=== PATIENT | female | born 1930 | race Caucasian/White ===

== ENCOUNTER → 2016-07-26 | Outpatient (CLI) | payer MEDICARE, BC ==
[2016-07-26 10:28] LABS: ABSOLUTE EOSINOPHILS # (AUTO) 0.3 10^3/uL (0.0-0.6); ABSOLUTE LYMPHOCYTES (AUTO) 1.5 10^3/uL (0.5-4.7); ABSOLUTE MONOCYTES (AUTO) 0.7 10^3/uL (0.1-1.4); ABSOLUTE NEUT (AUTO) 4.3 10^3/uL (1.7-8.2); BASOPHILS % (AUTO) 0.5 % (0-2); EOSINOPHILS % (AUTO) 3.8 % (0-6); HEMATOCRIT 41.5 % (36.0-47.0); HEMOGLOBIN 14.3 g/dL (12.0-15.5); HGB HCT DIFFERENCE 1.4; LYMPHOCYTES % (AUTO) 21.8 % (13-45); MEAN CORPUSCULAR HEMOGLOBIN 30.1 pg (27.0-33.4); MEAN CORPUSCULAR HGB CONC 34.4 g/dL (32.0-36.0); MEAN CORPUSCULAR VOLUME 88 fl (80-97); MONOCYTES % (AUTO) 9.9 % (3-13); RED BLOOD COUNT 4.74 10^6/uL (3.72-5.28); RED CELL DISTRIBUTION WIDTH 12.3 % (11.5-14.0); WHITE BLOOD COUNT 6.7 10^3/uL (4.0-10.5)
[2016-07-26 10:57] LABS: ALANINE AMINOTRANSFERASE 31 U/L (9-52); ALBUMIN 3.5 g/dL (3.5-5.0); ALKALINE PHOSPHATASE 63 U/L (38-126); ANION GAP 11 (5-19); ASPARTATE AMINO TRANSFERASE 26 U/L (14-36); BILIRUBIN,TOTAL 0.6 mg/dL (0.2-1.3); BLOOD UREA NITROGEN 42 mg/dL (7-20); CALCIUM 9.9 mg/dL (8.4-10.2); CARBON DIOXIDE 26 mmol/L (22-30); CHLORIDE 105 mmol/L (98-107); CHOLESTEROL 143.82 mg/dL (0-200); CREATININE RESULT 1.38 mg/dL (0.52-1.25); Direct HDL 44 mg/dL (>40); GLUCOSE 157 mg/dL (75-110); POTASSIUM 4.7 mmol/L (3.6-5.0); SODIUM 141.5 mmol/L (137-145); TOTAL PROTEIN 6.4 g/dL (6.3-8.2); TRIGLYCERIDES 225 mg/dL (<150)
[2016-07-26 11:08] LABS: DIRECT LDL 71 mg/dL (<100)
== END ==
LOC: OD 09:11
DX: R06.02 Shortness of breath (principal); Z79.899 Other long term (current) drug therapy
CPT/HCPCS: 36415; 71020; 80053; 80061; 83036; 84443; 85025

== ENCOUNTER → 2016-07-28 | Outpatient (CLI) | payer MEDICARE, BC | LOC: WI 13:18 | DX: Z12.31 Encounter for screening mammogram for malignant neoplasm of breast (principal); N63 Unspecified lump in breast; Z78.0 Asymptomatic menopausal state | CPT/HCPCS: 77063; 77080; G0202; 77067 ==

== ENCOUNTER → 2016-08-21 | Outpatient (CLI) | payer MEDICARE, BC | LOC: WI 10:36 | DX: N63 Unspecified lump in breast (principal) | CPT/HCPCS: 76642; G0204 ==

== ENCOUNTER → 2016-09-04 | Day surgery (SDC) | payer MEDICARE, BC ==
[~2016-09-04] MED LIST: LIDOCAINE 2% INJ (20 MG/ML) 20 ML MDV ONE
== END ==
LOC: WI 13:00
PROC: 0HBU3ZX Excision of Left Breast, Percutaneous Approach, Diagnostic (ICD-10-PCS; principal; 2016-09-04)
DX: C50.912 Malignant neoplasm of unspecified site of left female breast (principal)
CPT/HCPCS: 88342 ×2; 88341 ×2; 88305 ×2; 19083; J3490

== ENCOUNTER 2016-11-08 07:12 | Day surgery (SDC) | payer MEDICARE, BC ==
[2016-11-02 08:01] LABS: HEMATOCRIT 40.2 % (36.0-47.0); HEMOGLOBIN 12.9 g/dL (12.0-15.5); HGB HCT DIFFERENCE -1.5; MEAN CORPUSCULAR HGB CONC 32.1 g/dL (32.0-36.0); MEAN CORPUSCULAR VOLUME 91 fl (80-97); RED BLOOD COUNT 4.44 10^6/uL (3.72-5.28); RED CELL DISTRIBUTION WIDTH 13.4 % (11.5-14.0); WHITE BLOOD COUNT 5.8 10^3/uL (4.0-10.5)
[2016-11-04 18:50] LABS: ANION GAP 13 (5-19); BLOOD UREA NITROGEN 44 mg/dL (7-20); CALCIUM 10.2 mg/dL (8.4-10.2); CARBON DIOXIDE 29 mmol/L (22-30); CHLORIDE 100 mmol/L (98-107); CREATININE RESULT 1.47 mg/dL (0.52-1.25); GLUCOSE 180 mg/dL (75-110); POTASSIUM 4.2 mmol/L (3.6-5.0); SODIUM 142.4 mmol/L (137-145)
[~2016-11-08 07:12] MED LIST changes: +CLINDAMYCIN 600 MG/D5W RTU 600 MG/50 ML RTUPB IV PRN; +LACTATED RINGERS 1000 ML IV PRN; +LIDOCAINE 0.5% INJ-PF (5 MG/ML) 50 ML SDV SUBCUT PRN; -LIDOCAINE 2% INJ (20 MG/ML) 20 ML MDV ONE; +LIDOCAINE 4% TRANSPARENT DRESSING 5 GM KIT TP PRN
[2016-11-08] MEDS ORDERED: LIDOCAINE 1%/EPINEPHRINE INJ 20 ML VIAL ONE ×2 (07:25→12:49)
[2016-11-08] MEDS ORDERED: MICROFIBRILLAR COLLAGEN 1 GM PACK ONE (07:25)
[2016-11-08] MEDS ORDERED: GLYCOPYRROLATE INJ 0.4 MG/2 ML VIAL ONE (07:41)
[2016-11-08] MEDS ORDERED: ONDANSETRON HCL INJ/PF 4 MG/2 ML SDV ONE (07:41)
[2016-11-08] MEDS ORDERED: SUCCINYLCHOLINE CHLORIDE INJ 200 MG/10 ML VIAL ONE (07:41)
[2016-11-08] MEDS ORDERED: DEXAMETHASONE SOD PHOSPHATE INJ 4 MG/1 ML VIAL ONE (07:41)
[2016-11-08 08:11] LABS: PARTIAL THROMBOPLASTIN TIME 25.9 SEC (23.5-35.8); PROTHROMBIN TIME 13.4 SEC (11.4-15.4)
--- NOTE | 2016-11-08 09:33 | RADIOLOGY REPORT (SQ) ---
EXAM DESCRIPTION: NM LYMPHATICS/LYMPH GLANDS COMPLETED DATE/TIME: 11/08/2016 9:15 am REASON FOR STUDY: Left Breast CA C50.912 MALIGNANT NEOPLASM OF UNSPECIFIED SITE OF LEFT FEMALE Z79. 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 RADIONUCLIDE AND DOSE: 893 microcuries TC-99mtilmanocept - Lymphoseek. The route of agent administration: Subcutaneous in the skin. TECHNIQUE: The skin of the left breast was prepped in sterile fashion. The radiopharmaceutical was administered in equally divided doses in the periareolar breast. LIMITATIONS: None. FINDINGS: Images demonstrate activity at the injection site. IMPRESSION: ADMINISTRATION OF RADIOPHARMACEUTICAL FOR SENTINEL LYMPH NODE EVALUATION. TECHNICAL DOCUMENTATION: JOB ID: [id number] [email or web address]- All Rights Reserved
[2016-11-08] MEDS ORDERED: EPHEDRINE SULFATE INJ 50 MG/1 ML AMPULE ONE (12:29)
[2016-11-08] MEDS ORDERED: MIDAZOLAM 2 MG/2 ML INJ ONE (12:29)
[2016-11-08] MEDS ORDERED: HYDROMORPHONE HCL INJ/PF 2 MG/ML AMPULE ONE (12:29)
[2016-11-08] MEDS ORDERED: FENTANYL CITRATE INJ/PF 250 MCG/5 ML AMPULE ONE (12:29)
[2016-11-08] MEDS ORDERED: PROPOFOL INJ 200 MG/20 ML VIAL IV ONE (12:30)
[2016-11-08] MEDS ORDERED: ACETAMINOPHEN 100 ML IV ONE (12:30)
[2016-11-08] MEDS ORDERED: LIDOCAINE 2%/EPINEPHRINE INJ 20 ML VIAL ONE (12:50)
[2016-11-08] MEDS ORDERED: FENTANYL CITRATE INJ/PF 100 MCG/2 ML AMPUL IV PRN ×3 (13:25)
[2016-11-08] MEDS ORDERED: PROMETHAZINE HCL INJ 25 MG/1 ML VIAL IV PRN ×2 (13:25)
[2016-11-08] MEDS ORDERED: MEPERIDINE HCL/PF INJ 25 MG/1 ML DISP.SYRIN IV PRN (13:25)
[2016-11-08] MEDS ORDERED: DIPHENHYDRAMINE HCL 50 MG/ML VIAL IV PRN (13:25)
[2016-11-08] MEDS ORDERED: OXYCODONE-ACETAMINOPHEN 5-325 MG TABLET PO PRN ×2 (13:25)
[2016-11-08] MEDS ORDERED: MORPHINE SULFATE 10 MG/ML INJ IV PRN (13:25)
--- NOTE | 2016-11-08 14:42 | Operative Report ---
Operative Report DATE OF SURGERY: 11/08/16 PREOPERATIVE DIAGNOSIS: Breast carcinoma left OPERATION: 1. Lymph node biopsy sentinel times two. 2. Left breast lumpectomy , excision of anterior cavity wall pain placement. 3. intra Operative ultrasonography SURGEON: HUAN PUGH CROSSBOW MAKER: PATRICK KELLEY ANESTHESIA: GA TISSUE REMOVED OR ALTERED: Lymph node 2; left breast lumpectomy and anterior cavity wall COMPLICATIONS: None ESTIMATED BLOOD LOSS: 10 cc INTRAOPERATIVE FINDINGS: Below PROCEDURE: Patient was seen in the ambulatory surgery area, she underwent lymphoscintigraphy left breast. Unfortunately she could not lay down for all the imaging but she did get injected with technetium 99 sulfur colloid. Bedside neoprobe showed uptake in the left axilla Patient was taken to the operating room where general anesthesia was induced. The left arm was abducted left breast and chest wall prepped and draped in a sterile fashion. Surgical plan and surgical timeout were conducted. There was no methylene blue left in the hospital so blue dye mapping could not be used. Neoprobe used to perform localization of sentinel lymph nodes. Skin was anesthetized 1% lidocaine with epinephrine. A 3 cm incision was made in the left axilla. 2 sentinel lymph nodes were harvested both hot the first in vivo count 4871 with an ex vivo count was 3567. The second sentinel lymph node had an in vivo count of 11,051 and an ex vivo count of 9914. Both lymph nodes were obtained from the lower axilla, zone 1. Hemostasis was excellent the wound was packed with a gauze dressing We now approached the left breast tumor which is approximately 2 cm mass in the 6 o'clock position of the left breast. Ultrasonography confirmed the presence of the mass just above the inframammary fold. The skin was anesthetized with 1 % plain. Approximately 7-1/2 cm incision was made over the target tissue. A generous lumpectomy specimen was obtained without the removal of skin. The specimen was taken down to the chest wall. Sutures of 0 silk were placed short gut in the 12 o'clock position and long in the 3 o'clock position. The specimen was sent to pathology and evaluated by Dr. Neal and found to contain the tumor however she was concerned there may be positive margin anteriorly. For this reason we went back to the left breast and excised are recently closed the incision which consisted of the superior and inferior skin flaps. This portion of tissue was approximately 1/2 cm wide by 9 cm long. It was similarly with suture at the 12 o'clock position, short, and the lateral 3 o'clock position long. It was sent for permanent analysis by pathology. A large drain Sae was placed in the inferior mammary fold was secured to the skin with 2-0 Prolene suture. Wounds closed in the axilla and left breast with 3-0 Vicryl benzoin and Steri-Strips. Compression dressing applied the left breast. Postop procedure well, extubated, and taken to recovery in stable condition The physician assistant to the president, Ms. Kelley, provided assistance during this case by: port insertion, retracting tissue, instillation of local anesthesia and closure of skin incisions.
--- NOTE | 2016-11-08 14:50 | PDOC DISCHARGE SUMMARY ---
Discharge Summary (SDC) - Discharge Final Diagnosis: Left breast lumpectomy with sentinel node biopsy Date of Surgery: 11/08/16 Discharge Date: 11/08/16 Condition: Stable Treatment or Instructions: [facility] [address], [place] [address] Care Instructions Following Your Lumpectomy Activities: Resume normal activities when you feel comfortable. It is best to remain as active as possible to speed your recovery. It is common to experience some fatigue after surgery and you may find that short naps are helpful. Avoid strenuous activity such as weight lifting, tennis, etc at your surgical site for two weeks. Perform gentle arm exercises daily and do not favor your operative arm to due increased risk of mobility issues postoperatively. No driving for 7 days after surgery. Do not drive if you are taking pain medication other than Tylenol or Ibuprofen. No swimming, tub baths or soaking in a hot tub for 4 weeks. There are no dietary restrictions. Do not smoke as this impairs wound healing. Surgical Site care: You may shower with soap and water using your hands. Do not scrub the incision. Pat the area dry with a towel. You do not need to recover the wound although some patients find that they feel more comfortable using a light dressing for a few days to absorb any minimal drainage which may occur. Many patients also find that keeping a dressing around the drain exit site is helpful to absorb any drainage which may leak around the tubing. If you use a dressing in this manner change it at least every day. Do not use heating pad or apply an ice pack to the operative site. You may apply deodorant if you are careful to avoid getting it on the wound itself. Empty the bulbs attached to the drain every 12 hours and measure the fluid output separately from each drain. Please also strip each drain each time you empty it to prevent clogging. Keep a record of the output and bring this record with you each time you come to the office for postoperative care. A drain is ready to be removed when its output is 30 mL per 24 hours per drain for 2 consecutive days. Please call the office to inform our staff that you need to come in for drain removal. Medications: Take Toradol every 4-6 hours as needed for pain. You may alternate pain medication with tylenol. Again, you cannot drive while taking narcotic pain medication. Resume all of your normal prescription medications after your surgery unless instructed otherwise. You may experience constipation after surgery while taking pain medications. If using a narcotic on a regular basis, take a stool softener such as Colace twice a day. It is helpful to stay hydrated by drinking lots of fluids. Walking is also helpful and is good exercise after surgery. If you need extra help, use Milk of Magnesia according to the directions on the package. Follow-up: Call our office at to make a follow-up appointment in 10-14 days. Your doctor will call to discuss the pathology report with you as soon as it is available. Concerns: If you had a sentinel lymph node biopsy with your mastectomy, your urine may have a greenish discoloration. This is normal and will resolve as the blue dye slowly leaves your system. If you notice significant leakage around the drains , this is not normal. The drains may be clogged. Please call our office to come in immediately for the drains to be checked. Some bruising may occur and will go away over time. If you have a fever of 101.5 or greater, chills, redness at the incision site, excessive drainage from your wound or severe pain not relieved by pain medication, call your doctor. A physician is available 24 hours a day 7 days a week in addition to regular office hours. If problems arise after normal office hours please call the hospital at . Please call if you have any questions or concerns. Prescriptions: Ketorolac Tromethamine [Toradol 10 mg Tablet] 10 mg PO Q6HP PRN #20 tablet PRN Reason: Discharge Diet: As Tolerated Discharge Activity: Activity As Tolerated - avoid overuse of left arm. Report the Following to Your Physician Immediately: Increase in Pain, Fever over 101 Degrees, Redness, Swelling, Warmth, Drainage-Foul Smelling
[2016-11-08 17:04] VITALS: BP 138/50
== END 2016-11-08 17:05 | disposition home or self-care (01) ==
LOC: OROUT 07:12
PROVIDERS: ATTEND Surgery
PROC: 07B60ZX Excision of Left Axillary Lymphatic, Open Approach, Diagnostic (ICD-10-PCS; 2016-11-08)
PROC: 0HBU0ZZ Excision of Left Breast, Open Approach (ICD-10-PCS; principal; 2016-11-08 11:00)
DX: C50.912 Malignant neoplasm of unspecified site of left female breast (principal); I25.10 Atherosclerotic heart disease of native coronary artery without angina pectoris; I73.9 Peripheral vascular disease, unspecified; I10 Essential (primary) hypertension; E11.9 Type 2 diabetes mellitus without complications; M19.90 Unspecified osteoarthritis, unspecified site; E66.9 Obesity, unspecified; Z87.891 Personal history of nicotine dependence; Z79.899 Other long term (current) drug therapy; Z79.82 Long term (current) use of aspirin; Z79.84 Long term (current) use of oral hypoglycemic drugs; Z68.37 Body mass index [BMI] 37.0-37.9, adult
CPT/HCPCS: 36415 ×2; 82962; 84132; 85027; 85610; 85730; 80048; 88342 ×2; 88305 ×2; 88307 ×2; 88329; 71020; 78195; 19301; 38500; A9520; J2250; J1100; J3010; J3490 ×3; J0330; J2405; J2704; J0131; 1610; J1170

== ENCOUNTER → 2016-12-01 | Outpatient (CLI) | payer MEDICARE, BC ==
[2016-12-01 10:23] LABS: HEMATOCRIT 42.5 % (36.0-47.0); HEMOGLOBIN 14.1 g/dL (12.0-15.5); HGB HCT DIFFERENCE -0.2; MEAN CORPUSCULAR HEMOGLOBIN 29.2 pg (27.0-33.4); MEAN CORPUSCULAR HGB CONC 33.2 g/dL (32.0-36.0); MEAN CORPUSCULAR VOLUME 88 fl (80-97); RED BLOOD COUNT 4.83 10^6/uL (3.72-5.28); WHITE BLOOD COUNT 5.6 10^3/uL (4.0-10.5)
[2016-12-01 10:57] LABS: ALANINE AMINOTRANSFERASE 29 U/L (9-52); ALBUMIN 3.9 g/dL (3.5-5.0); ALKALINE PHOSPHATASE 58 U/L (38-126); ANION GAP 11 (5-19); ASPARTATE AMINO TRANSFERASE 28 U/L (14-36); BILIRUBIN,DIRECT 0.4 mg/dL (0.0-0.4); BILIRUBIN,TOTAL 0.6 mg/dL (0.2-1.3); BLOOD UREA NITROGEN 41 mg/dL (7-20); CALCIUM 10.3 mg/dL (8.4-10.2); CARBON DIOXIDE 26 mmol/L (22-30); CHLORIDE 103 mmol/L (98-107); CREATININE RESULT 1.46 mg/dL (0.52-1.25); GLUCOSE 109 mg/dL (75-110); MAGNESIUM 1.7 mg/dL (1.6-2.3); POTASSIUM 4.7 mmol/L (3.6-5.0); SODIUM 140.2 mmol/L (137-145); TOTAL PROTEIN 6.5 g/dL (6.3-8.2)
[2016-12-01 14:30] LABS: APPEARANCE,URINE SLIGHTLY-CLOUDY; BILIRUBIN,URINE NEGATIVE (NEGATIVE); GLUCOSE, URINE NEGATIVE (NEGATIVE); KETONES,URINE NEGATIVE (NEGATIVE); LEUKOCYTE ESTERASE,URINE LARGE (NEGATIVE); NITRITE,URINE NEGATIVE (NEGATIVE); PROTEIN,URINE NEGATIVE (NEGATIVE); URINE SPECIFIC GRAVITY 1.015; UROBILINOGEN,URINE NEGATIVE mg/dL (<2.0)
== END ==
LOC: OD 08:39
PROVIDERS: ATTEND Internal Medicine Nephrology
DX: E11.22 Type 2 diabetes mellitus with diabetic chronic kidney disease (principal); N18.3 Chronic kidney disease, stage 3 (moderate); E87.5 Hyperkalemia
CPT/HCPCS: 36415; 80053; 81001; 83735; 85027

== ENCOUNTER → 2016-12-28 | Outpatient (CLI) | payer MEDICARE, BC ==
[2016-12-28 10:27] LABS: ANION GAP 13 (5-19); BLOOD UREA NITROGEN 48 mg/dL (7-20); CALCIUM 10.3 mg/dL (8.4-10.2); CARBON DIOXIDE 25 mmol/L (22-30); CHLORIDE 104 mmol/L (98-107); CREATININE RESULT 1.43 mg/dL (0.52-1.25); GLUCOSE 138 mg/dL (75-110); POTASSIUM 4.5 mmol/L (3.6-5.0); SODIUM 142.3 mmol/L (137-145)
== END ==
LOC: OD 09:11
PROVIDERS: ATTEND Internal Medicine Nephrology
DX: I12.9 Hypertensive chronic kidney disease with stage 1 through stage 4 chronic kidney disease, or unspecified chronic kidney disease (principal); N18.3 Chronic kidney disease, stage 3 (moderate); E11.9 Type 2 diabetes mellitus without complications
CPT/HCPCS: 36415; 80048

== ENCOUNTER → 2017-08-21 | Outpatient (CLI) | payer MEDICARE, BC ==
--- NOTE | 2017-08-21 12:50 | WOMENS IMAGING REPORT ---
EXAM DESCRIPTION: 3D DX MAMMO BILAT COMPLETED DATE/TIME: 08/21/2017 11:23 am REASON FOR STUDY: BREAST CANCER; C50.412 C50.412 MALIG NEOPLASM OF UPPER-OUTER QUADRANT OF LEFT FEM AL COMPARISON: 2017 TECHNIQUE: Standard craniocaudal and mediolateral oblique views of each breast recorded using digita l acquisition and breast tomosynthesis. True lateral view left breast. LIMITATIONS: None. FINDINGS: RIGHT BREAST MASSES: No suspicious masses. CALCIFICATIONS: No new or suspicious calcifications. ARCHITECTURAL DISTORTION: None. DEVELOPING DENSITY: None. ASYMMETRY: None noted. OTHER: No other significant findings. LEFT BREAST MASSES: No suspicious masses. CALCIFICATIONS: No new or suspicious calcifications. ARCHITECTURAL DISTORTION: None. DEVELOPING DENSITY: None. ASYMMETRY: None noted. OTHER: No other significant finding. Read with the assistance of CAD: .[facility] - R2 Cenova Version 1.3 .[facility] Imaging - R2 Cenova Version 1.3 .[facility] - R2 Cenova Version 2.4 .[facility] [place] - R2 Cenova Version 2.4 .[facility] - R2 Sink Maker Version 9.2 IMPRESSION: Postsurgical changes left breast. No evidence of malignancy in the right breast. BREAST DENSITY: a. The breasts are almost entirely fatty. BIRAD: 2 Benign findings. RECOMMENDATION: RECOMMENDED FOLLOW UP: Annual mammographic follow-up. SPECIFIC INTERVENTION/IMAGING/CONSULTATION RECOMMENDED:No additional intervention/ imaging/consultati on needed at this time. COMMUNICATION:The imaging findings were not discussed with the patient. Her referring provider has be en notified of the findings. COMMENT: The patient has been notified of the results by letter per SA requirements. Additional no tification policies are in place for contacting patient with suspicious or incomplete findings. Quality ID #225: The [employer] recommends an annual screening mammogram for women aged 40 years or over. This facility utilizes a reminder system to ensure that all patients receive reminder letters, and/or direct phone calls for appointments. This includes reminders for routine scr eening mammograms, diagnostic mammograms, or other Breast Imaging Interventions when appropriate. Th is patient will be placed in the appropriate reminder system. The [employer] (ACR) has developed recommendations for screening MRI of the breast s in certain patient populations, to be used in conjunction with mammography. Breast MRI surveillanc e may be appropriate for women with more than 20% lifetime risk of developing breast cancer as deter mined by genetic testing, significant family history of the disease, or history of mantle radiation f or Hodgkins Disease. ACR Practice Guidelines 2008. DBT Technology DBT is a type of tomographic mammography. With conventional mammography, overlapping breast tissue ma y make lesions difficult to detect, even with good compression. DBT uses an x-ray tube that rotates a round the breast, taking images at different angles. These images are then combined to create thin sl ices of the breast that the radiologist can view as a 3D reconstruction. The [employer] unit can perform full-field digital mammograms (2D imaging); or DBT (3D imaging); or both, in a combination mode that quickly performs both the mammogram and the tomosynthesis scan while the breast is still compressed. PQRS 6045F: Fluoroscopic imaging is not utilized for breast tomosynthesis. TECHNICAL DOCUMENTATION: FINDING NUMBER: (1) ASSESSMENT: (1) JOB ID: [id number] [employer]- All Rights Reserved Reading location - IP/workstation name: [email or web address]
== END ==
LOC: WI 10:53
PROVIDERS: ATTEND Internal Medicine Hematology & Oncology
DX: C50.412 Malignant neoplasm of upper-outer quadrant of left female breast (principal)
CPT/HCPCS: 77066; G0279; 77062

== ENCOUNTER → 2017-10-22 | Outpatient (CLI) | payer MEDICARE, BC ==
[2017-10-22 13:31] LABS: HEMOGLOBIN 14.8 g/dL (12.0-15.5); MEAN CORPUSCULAR HEMOGLOBIN 29.2 pg (27.0-33.4); MEAN CORPUSCULAR HGB CONC 33.7 g/dL (32.0-36.0); MEAN CORPUSCULAR VOLUME 87 fl (80-97); PLATELET COUNT 197 10^3/uL (150-450); RED BLOOD COUNT 5.08 10^6/uL (3.72-5.28); RED CELL DISTRIBUTION WIDTH 12.6 % (11.5-14.0); WHITE BLOOD COUNT 7.5 10^3/uL (4.0-10.5)
[2017-10-22 13:52] LABS: ANION GAP 14 (5-19); BLOOD UREA NITROGEN 43 mg/dL (7-20); CALCIUM 11.4 mg/dL (8.4-10.2); CARBON DIOXIDE 31 mmol/L (22-30); CHLORIDE 99 mmol/L (98-107); GLUCOSE 154 mg/dL (75-110); POTASSIUM 4.7 mmol/L (3.6-5.0); SODIUM 143.8 mmol/L (137-145)
[2017-10-22 17:11] LABS: APPEARANCE,URINE SLIGHTLY-CLOUDY; BILIRUBIN,URINE NEGATIVE (NEGATIVE); COLOR,URINE YELLOW; GLUCOSE, URINE NEGATIVE (NEGATIVE); KETONES,URINE NEGATIVE (NEGATIVE); LEUKOCYTE ESTERASE,URINE LARGE (NEGATIVE); NITRITE,URINE NEGATIVE (NEGATIVE); PROTEIN,URINE NEGATIVE (NEGATIVE); URINE SPECIFIC GRAVITY 1.017; UROBILINOGEN,URINE NEGATIVE mg/dL (<2.0)
[2017-10-24 12:38] LABS: CREATININE URINE 162.1 mg/dL (Not Estab.); MICROALBUMIN URINE 83.3 ug/mL (Not Estab.)
== END ==
LOC: OD 12:38
PROVIDERS: ATTEND Internal Medicine Nephrology
DX: I12.9 Hypertensive chronic kidney disease with stage 1 through stage 4 chronic kidney disease, or unspecified chronic kidney disease (principal); N18.3 Chronic kidney disease, stage 3 (moderate); E11.9 Type 2 diabetes mellitus without complications; E87.5 Hyperkalemia
CPT/HCPCS: 36415; 80048; 81001; 82043; 82570; 85027

== ENCOUNTER → 2017-12-05 | Outpatient (CLI) | payer MEDICARE, BC ==
--- NOTE | 2017-12-06 11:49 | XCELERA REPORT ---
[address] [address] Lower Extremity Arterial Evaluation Name: AME HOPE I Age: 87 yrs Gender: Female : 1930 Patient Status: Outpatient Patient Location: Study Date: 12/05/2017 01:18 PM Procedure: A color flow and duplex scan of the lower extremity arteries was performed bilaterally with velocity and waveform analysis. Ankle brachial indicies performed. Reason For Study: BLE PAIN Ordering Physician: KB GAMBOA Performed By: Adolph Mena Measurements and Calculations Right Left WARD SECRETARY PSV 138.3 227.5 cm/sec Prox PFA PSV -85.6 -98.7 cm/sec Prox SFA PSV 86.4 117.3 cm/sec Mid SFA PSV -116.4 -117.3 cm/sec Dist SFA PSV -72.6 -129.6 cm/sec Prox Pop A PSV 82.5 85.0 cm/sec Dist GWYN PSV 57.0 104.1 cm/sec Dist COMPUTER HARDWARE DEVELOPER PSV 66.3 99.2 cm/sec Juan Pedis PSV 60.8 103.1 cm/sec Right Side Arterial Evaluation Normal velocity and triphasic waveforms noted in the Common Femoral artery. Biphasic otherwise to the infrageniculate vessels. 20-49 % stenosis at the Deep Femoral and Femoral arteries. Ankle Brachial index is 0.79. Left Side Arterial Evaluation Normal velocity and triphasic waveforms noted in the Common Femoral artery. Biphasic otherwise to the infrageniculate vessels. 20-49 % stenosis at the Deep Femoral and Femoral arteries. Ankle Brachial index is 0.99. Interpretation Summary Moderate hemodynamically significant lesions in the bilateral lower extremities, on duplex imaging, at rest. : KB GAMBOA > Kirk Scruggs
== END ==
LOC: SP 12:58
PROVIDERS: ATTEND Internal Medicine Cardiovascular Disease
DX: M79.605 Pain in left leg (principal)
CPT/HCPCS: 93922; 93925

== ENCOUNTER → 2018-02-14 | Outpatient (CLI) | payer MEDICARE, BC ==
[2018-02-14 14:26] LABS: ABSOLUTE BASOPHILS # (AUTO) 0.1 10^3/uL (0.0-0.2); ABSOLUTE LYMPHOCYTES (AUTO) 0.9 10^3/uL (0.5-4.7); ABSOLUTE MONOCYTES (AUTO) 0.6 10^3/uL (0.1-1.4); BASOPHILS % (AUTO) 0.8 % (0-2); EOSINOPHILS % (AUTO) 0.7 % (0-6); HEMATOCRIT 44.7 % (36.0-47.0); HEMOGLOBIN 15.2 g/dL (12.0-15.5); LYMPHOCYTES % (AUTO) 13.4 % (13-45); MEAN CORPUSCULAR HEMOGLOBIN 29.1 pg (27.0-33.4); MEAN CORPUSCULAR VOLUME 86 fl (80-97); MONOCYTES % (AUTO) 8.8 % (3-13); PLATELET COUNT 209 10^3/uL (150-450); RED BLOOD COUNT 5.22 10^6/uL (3.72-5.28); RED CELL DISTRIBUTION WIDTH 12.8 % (11.5-14.0); SEGMENTED NEUTROPHILS % (AUTO) 76.3 % (42-78); TOTAL CELLS COUNTED % (AUTO) 100 %; WHITE BLOOD COUNT 6.6 10^3/uL (4.0-10.5)
[2018-02-14 14:30] LABS: PROTHROMBIN TIME 13.7 SEC (11.4-15.4)
[2018-02-14 15:08] LABS: ANION GAP 14 (5-19); BLOOD UREA NITROGEN 35 mg/dL (7-20); CALCIUM 9.7 mg/dL (8.4-10.2); CARBON DIOXIDE 27 mmol/L (22-30); CHLORIDE 101 mmol/L (98-107); GLUCOSE 133 mg/dL (75-110); POTASSIUM 4.2 mmol/L (3.6-5.0); SODIUM 141.9 mmol/L (137-145)
== END ==
LOC: OD 13:31
PROVIDERS: ATTEND Internal Medicine Cardiovascular Disease
DX: I73.9 Peripheral vascular disease, unspecified (principal); I10 Essential (primary) hypertension
CPT/HCPCS: 36415; 80048; 83735; 85025; 85610

== ENCOUNTER 2018-02-24 15:32 | Observation (INO) | payer MEDICARE, BC ==
--- NOTE | 2018-02-24 16:06 | ER Document Report ---
ED Medical Screen (RME) - General Chief Complaint: Nausea Stated Complaint: NAUSEA, LEG PAIN Time Seen by Provider: 02/24/18 15:50 Mode of Arrival: Ambulatory Information source: Patient, Relative, [facility] Records Notes: 87-year-old female presents with 4 days of nausea without vomiting, blurred vision that started this morning and confusion that started yesterday. I have greeted and performed a rapid initial assessment of this patient. A comprehensive ED assessment and evaluation of the patient, analysis of test results and completion of medical decision making process we will be contacted by additional ED providers. PHYSICAL EXAMINATION: GENERAL: Well-appearing, well-nourished and in no acute distress. HEAD: Atraumatic, normocephalic. EYES: Pupils equal round extraocular movements intact, conjunctiva are normal. ENT: Nares patent NECK: Normal range of motion LUNGS: No respiratory distress Musculoskeletal: Normal range of motion NEUROLOGICAL: Normal speech, normal gait. Cranial nerves II through XII intact PSYCH: Normal mood, normal affect. SKIN: Warm, Dry, normal turgor, no rashes or lesions noted. TRAVEL OUTSIDE OF THE [place] IN LAST 30 DAYS: No - HPI Onset: Other Associated Symptoms: Nausea Exacerbated by: Denies Relieved by: Denies Similar symptoms previously: No Recently seen / treated by doctor: No - Related Data Smoking: Non-smoker Frequency of alcohol use: None Drug Abuse: None Allergies/Adverse Reactions: cephalexin monohydrate [From Keflex] Allergy (Verified 02/24/18 15:55) RASH, ITCHING Past Medical History - Social History Chew tobacco use (# tins/day): No Frequency of alcohol use: None Drug Abuse: None - Past Medical History Cardiac Medical History: Reports: Hx Hypercholesterolemia, Hx Hypertension, Hx Peripheral Vascular Disease Denies: Hx Coronary Artery Disease, Hx Heart Attack - PAD FOLLOWED IN [id number] Pulmonary Medical History: Denies: Hx Asthma, Hx Bronchitis, Hx COPD, Hx Pneumonia, Hx Tuberculosis Neurological Medical History: Denies: Hx Cerebrovascular Accident, Hx Seizures Endocrine Medical History: Reports: Hx Diabetes Mellitus Type 2 Renal/ Medical History: Denies: Hx Peritoneal Dialysis GI Medical History: Denies: Hx Hepatitis, Hx Hiatal Hernia, Hx Ulcer Musculoskeltal Medical History: Reports Hx Arthritis - legs Infectious Medical History: Denies: Hx Hepatitis Past Surgical History: Reports: Hx Breast Surgery - left lumpectomy, Hx Hysterectomy, Hx Vascular Surgery - Recently had a left femoral artery stent placed. Denies: Hx Open Heart Surgery, Hx Pacemaker - Immunizations Hx Diphtheria, Pertussis, Tetanus Vaccination: Yes Physical Exam - Vital signs Vitals: Temp Pulse Resp BP Pulse Ox 98.8 F 65 18 138/58 H 96 02/24/18 15:42 02/24/18 15:42 02/24/18 15:42 02/24/18 15:42 02/24/18 15:42 Course - Vital Signs Vital signs: Temp Pulse Resp BP Pulse Ox 98.8 F 65 18 138/58 H 96 02/24/18 15:42 02/24/18 15:42 02/24/18 15:42 02/24/18 15:42 02/24/18 15:42 Doctor's Discharge - Discharge Referrals: MARIANO MOYA DO [Primary Care Provider] - Follow up as needed
--- NOTE | 2018-02-24 17:00 | RADIOLOGY REPORT (SQ) ---
EXAM DESCRIPTION: CT HEAD WITHOUT COMPLETED DATE/TIME: 02/24/2018 4:51 pm REASON FOR STUDY: Confusion, blurred vision COMPARISON: None. TECHNIQUE: Axial images acquired through the brain without intravenous contrast. Images reviewed wi th bone, brain and subdural windows. Additional sagittal and coronal reconstructions were generated. Images stored on PACS. All CT scanners at this facility use dose modulation, iterative reconstruction, and/or weight based d osing when appropriate to reduce radiation dose to as low as reasonably achievable (ALARA). [facility]: Dose Right [facility]: CareDose [facility]: Dose Right [facility]: Teradose 4D [facility]: Smart Technologies RADIATION DOSE: CT Rad equipment meets quality standard of care and radiation dose reduction techniq ues were employed. CTDIvol: 53.2 mGy. DLP: 991 mGy-cm. mGy. LIMITATIONS: None. FINDINGS: VENTRICLES: Normal size and contour. CEREBRUM: No masses. No hemorrhage. No midline shift. No evidence for acute infarction. Normal gra y/white matter differentiation. No areas of low density in the white matter. CEREBELLUM: No masses. No hemorrhage. No alteration of density. No evidence for acute infarction. EXTRAAXIAL SPACES: No fluid collections. No masses. ORBITS AND GLOBE: No intra- or extraconal masses. Normal contour of globe without masses. CALVARIUM: No fracture. PARANASAL SINUSES: No fluid or mucosal thickening. SOFT TISSUES: No mass or hematoma. OTHER: No other significant finding. IMPRESSION: NORMAL BRAIN CT WITHOUT CONTRAST. EVIDENCE OF ACUTE STROKE: NO. COMMENT: Quality ID # [id number]: Final reports with documentation of one or more dose reduction techniques (e.g., Automated exposure control, adjustment of the mA and/or kV according to patient size, use of iterative reconstruction technique) TECHNICAL DOCUMENTATION: JOB ID: [id number] [employer]- All Rights Reserved Reading location - IP/workstation name: [email or web address]
--- NOTE | 2018-02-24 17:14 | RADIOLOGY REPORT (SQ) ---
EXAM DESCRIPTION: CHEST SINGLE VIEW COMPLETED DATE/TIME: 02/24/2018 5:05 pm REASON FOR STUDY: Confusion, blurred vision COMPARISON: None. EXAM PARAMETERS: NUMBER OF VIEWS: One view. TECHNIQUE: Single frontal radiographic view of the chest acquired. RADIATION DOSE: NA LIMITATIONS: None. FINDINGS: LUNGS AND PLEURA: No opacities, masses or pneumothorax. No pleural effusion. MEDIASTINUM AND HILAR STRUCTURES: No masses. Contour normal. HEART AND VASCULAR STRUCTURES: Heart normal in size. Normal vasculature. BONES: No acute findings. HARDWARE: None in the chest. OTHER: No other significant finding. IMPRESSION: NO ACUTE RADIOGRAPHIC FINDING IN THE CHEST. TECHNICAL DOCUMENTATION: JOB ID: [id number] [employer]- All Rights Reserved Reading location - IP/workstation name: [email or web address]
[2018-02-24 18:05] LABS: ABSOLUTE EOSINOPHILS # (AUTO) 0.1 10^3/uL (0.0-0.6); ABSOLUTE LYMPHOCYTES (AUTO) 1.1 10^3/uL (0.5-4.7); ABSOLUTE MONOCYTES (AUTO) 0.7 10^3/uL (0.1-1.4); ABSOLUTE NEUT (AUTO) 5.4 10^3/uL (1.7-8.2); BASOPHILS % (AUTO) 0.6 % (0-2); EOSINOPHILS % (AUTO) 0.8 % (0-6); HEMATOCRIT 44.9 % (36.0-47.0); HEMOGLOBIN 15.2 g/dL (12.0-15.5); LYMPHOCYTES % (AUTO) 14.6 % (13-45); MEAN CORPUSCULAR HEMOGLOBIN 29.1 pg (27.0-33.4); MEAN CORPUSCULAR HGB CONC 33.9 g/dL (32.0-36.0); MEAN CORPUSCULAR VOLUME 86 fl (80-97); MONOCYTES % (AUTO) 9.9 % (3-13); PLATELET COUNT 212 10^3/uL (150-450); RED BLOOD COUNT 5.22 10^6/uL (3.72-5.28); RED CELL DISTRIBUTION WIDTH 12.8 % (11.5-14.0); SEGMENTED NEUTROPHILS % (AUTO) 74.1 % (42-78); TOTAL CELLS COUNTED % (AUTO) 100 %; WHITE BLOOD COUNT 7.3 10^3/uL (4.0-10.5)
[2018-02-24 18:08] LABS: INTERNATIONAL RATION (INR) 0.98; PROTHROMBIN TIME 13.5 SEC (11.4-15.4)
[2018-02-24 18:09] LABS: PARTIAL THROMBOPLASTIN TIME 23.6 SEC (23.5-35.8)
[2018-02-24 18:26] LABS: ALANINE AMINOTRANSFERASE 29 U/L (9-52); ALBUMIN 4.2 g/dL (3.5-5.0); ALKALINE PHOSPHATASE 49 U/L (38-126); ANION GAP 14 (5-19); ASPARTATE AMINO TRANSFERASE 33 U/L (14-36); BILIRUBIN,DIRECT 0.5 mg/dL (0.0-0.4); BILIRUBIN,TOTAL 0.7 mg/dL (0.2-1.3); BLOOD UREA NITROGEN 32 mg/dL (7-20); CALCIUM 9.9 mg/dL (8.4-10.2); CARBON DIOXIDE 26 mmol/L (22-30); CHLORIDE 101 mmol/L (98-107); CREATINE KINASE 61 U/L (30-135); GLUCOSE 82 mg/dL (75-110); POTASSIUM 3.7 mmol/L (3.6-5.0); SODIUM 140.5 mmol/L (137-145); TOTAL PROTEIN 7.2 g/dL (6.3-8.2)
[2018-02-24 18:38] LABS: CREATINE KINASE MB 0.59 ng/mL (<4.55)
[2018-02-24 18:42] LABS: TROPONIN I < 0.012 ng/mL
[2018-02-24] MEDS ORDERED: NORMAL SALINE 500 ML IV ONE (18:45)
[2018-02-24] MEDS ORDERED: ONDANSETRON HCL INJ/PF 4 MG/2 ML SDV IV ONE (18:45)
--- NOTE | 2018-02-24 18:45 | ER Document Report ---
ED General - General Chief Complaint: Nausea Stated Complaint: NAUSEA, LEG PAIN Time Seen by Provider: 02/24/18 15:50 Mode of Arrival: Ambulatory Notes: Patient is a 87-year-old female that presents to the emergency department for chief complaint of chest pain and nausea. Patient reports that she started having chest pain intermittently yesterday, describes as a sharp substernal sensation, with associated shortness of breath and nausea. She denies noting any exertional component, or diaphoresis. She reports she has a "mild heart condition" but does not recall the last time she had a stress test. She does have diabetes mellitus and hypertension as well as peripheral vascular disease. She denies any numbness, tingling or weakness, but she also reports that she had some confusion meaning that she could not remember things she did earlier in the day, but is alert and oriented 4. Past Medical History: PVD, diabetes mellitus, hypertension Past Surgical History: Femoral artery stenting Social History: Denies current tobacco use, former smoker, denies alcohol or drug use. Family History: Reviewed and noncontributory for presenting illness Allergies: Reviewed, see documented allergy list. REVIEW OF SYSTEMS: Unless otherwise stated in this report the patient's positive and negative responses for review of systems for constitutional, eyes, ENT, cardiovascular, respiratory, gastrointestinal, neurological, genitourinary, musculoskeletal, and integumentary systems and related systems to the presenting problem are either as stated in the HPI or were not pertinent or were negative for the symptoms and/or complaints related to the presenting medical problem. PHYSICAL EXAMINATION: Vital signs reviewed, nursing noted reviewed. GENERAL: Elderly female, well-appearing, well-nourished and in no acute distress. HEAD: Atraumatic, normocephalic. EYES: Eyes appear normal, extraocular movements intact, sclera anicteric, conjunctiva are normal. ENT: nares patent, oropharynx clear without exudates. Moist mucous membranes. NECK: Normal range of motion, supple without lymphadenopathy LUNGS: Breath sounds clear to auscultation bilaterally and equal. No wheezes rales or rhonchi. HEART: Regular rate and rhythm without murmurs ABDOMEN: Soft, nontender, normoactive bowel sounds. No rebound, guarding, or rigidity. No masses appreciated. EXTREMITIES: Nontender, good range of motion, no pitting or edema. NEUROLOGICAL: No focal neurological deficits. Moves all extremities spontaneously Motor and sensory grossly intact on exam. PSYCH: Normal mood, normal affect. SKIN: Warm, Dry, normal turgor, no rashes or lesions noted on exposed skin TRAVEL OUTSIDE OF THE [place] IN LAST 30 DAYS: No - Related Data Allergies/Adverse Reactions: cephalexin monohydrate [From Keflex] Allergy (Verified 02/24/18 15:55) RASH, ITCHING Past Medical History - General Information source: Patient, Relative, [facility] Records - Social History Smoking Status: Former Smoker Chew tobacco use (# tins/day): No Frequency of alcohol use: None Drug Abuse: None Family History: Reviewed & Not Pertinent Patient has suicidal ideation: No Patient has homicidal ideation: No - Past Medical History Cardiac Medical History: Reports: Hx Hypercholesterolemia, Hx Hypertension, Hx Peripheral Vascular Disease Denies: Hx Coronary Artery Disease, Hx Heart Attack - PAD FOLLOWED IN [facility] [id number] Pulmonary Medical History: Denies: Hx Asthma, Hx Bronchitis, Hx COPD, Hx Pneumonia, Hx Tuberculosis Neurological Medical History: Denies: Hx Cerebrovascular Accident, Hx Seizures Endocrine Medical History: Reports: Hx Diabetes Mellitus Type 2 Renal/ Medical History: Denies: Hx Peritoneal Dialysis GI Medical History: Denies: Hx Hepatitis, Hx Hiatal Hernia, Hx Ulcer Musculoskeletal Medical History: Reports Hx Arthritis - legs Infectious Medical History: Denies: Hx Hepatitis Past Surgical History: Reports: Hx Breast Surgery - left lumpectomy, Hx Hysterectomy, Hx Vascular Surgery - Recently had a left femoral artery stent placed. Denies: Hx Open Heart Surgery, Hx Pacemaker - Immunizations Hx Diphtheria, Pertussis, Tetanus Vaccination: Yes Hx Pneumococcal Vaccination: 12/17/15 Physical Exam - Vital signs Vitals: Temp Pulse Resp BP Pulse Ox 98.8 F 65 18 138/58 H 96 02/24/18 15:42 02/24/18 15:42 02/24/18 15:42 02/24/18 15:42 02/24/18 15:42 Course - Re-evaluation Re-evalutation: Patient seen and examined vital signs reviewed. Laboratory data and imaging were ordered as appropriate for the patient's presenting symptoms and complaint, with consideration of any critical or life threatening conditions that may be associated with their obtained history and exam as noted above. Patient was treated with IV fluids and Zofran Results were reviewed when available and demonstrated negative initial troponin , chest x-ray negative, the patient's blood work was essentially unremarkable CT of her head was negative. The patient was re-evaluated and was was improved from a nausea standpoint, not currently having chest pain Evaluation was most consistent with nonspecific chest pain, patient will need to be evaluated with serial troponins, patient agreeable to this plan of care. Results were discussed with the patient at this point after careful consideration I feel that that patient should be admitted to the hospital. This was discussed with the patient that it is in the best interest for their care to be admitted for further evaluation and management. Patient agreed with this plan of care. A call was placed to the admitted physician, Dr. Helms who graciously accepted the patient onto their service. *Note is created using voice recognition software and may contain spelling, syntax or grammatical errors. Laboratory 02/24/18 02/24/18 02/24/18 17:40 17:40 17:40 WBC 7.3 RBC 5.22 Hgb 15.2 Hct 44.9 MCV 86 MCH 29.1 MCHC 33.9 RDW 12.8 Plt Count 212 Seg Neutrophils % 74.1 Lymphocytes % 14.6 Monocytes % 9.9 Eosinophils % 0.8 Basophils % 0.6 Absolute Neutrophils 5.4 Absolute Lymphocytes 1.1 Absolute Monocytes 0.7 Absolute Eosinophils 0.1 Absolute Basophils 0.0 PT 13.5 INR 0.98 APTT 23.6 Sodium 140.5 Potassium 3.7 Chloride 101 Carbon Dioxide 26 Anion Gap 14 BUN 32 H Creatinine 1.37 H Est GFR ( Amer) 44 L Est GFR (Non-Af Amer) 37 L Glucose 82 Calcium 9.9 Total Bilirubin 0.7 Direct Bilirubin 0.5 H Neonat Total Bilirubin Not Reportable Neonat Direct Bilirubin Not Reportable Neonat Indirect Bili Not Reportable AST 33 ALT 29 Alkaline Phosphatase 49 Creatine Kinase 61 CK-MB (CK-2) Troponin I Total Protein 7.2 Albumin 4.2 02/24/18 17:40 WBC RBC Hgb Hct MCV MCH MCHC RDW Plt Count Seg Neutrophils % Lymphocytes % Monocytes % Eosinophils % Basophils % Absolute Neutrophils Absolute Lymphocytes Absolute Monocytes Absolute Eosinophils Absolute Basophils PT INR APTT Sodium Potassium Chloride Carbon Dioxide Anion Gap BUN Creatinine Est GFR ( Amer) Est GFR (Non-Af Amer) Glucose Calcium Total Bilirubin Direct Bilirubin Neonat Total Bilirubin Neonat Direct Bilirubin Neonat Indirect Bili AST ALT Alkaline Phosphatase Creatine Kinase CK-MB (CK-2) 0.59 Troponin I < 0.012 Total Protein Albumin Chest X-Ray 02/24/18 16:04 IMPRESSION: NO ACUTE RADIOGRAPHIC FINDING IN THE CHEST. Head CT 02/24/18 16:04 IMPRESSION: NORMAL BRAIN CT WITHOUT CONTRAST. EVIDENCE OF ACUTE STROKE: NO. - Vital Signs Vital signs: Temp Pulse Resp BP Pulse Ox 98.8 F 52 L 17 129/58 H 95 02/24/18 15:42 02/24/18 19:15 02/24/18 22:00 02/24/18 21:16 02/24/18 22:00 - Laboratory Result Diagrams: 02/24/18 17:40 02/24/18 17:40 Laboratory results interpreted by me: 02/24/18 17:40 BUN 32 H Creatinine 1.37 H Est GFR ( Amer) 44 L Est GFR (Non-Af Amer) 37 L Direct Bilirubin 0.5 H - EKG Interpretation by Me Additional EKG results interpreted by me: EKG demonstrates sinus bradycardia with a ventricular rate of 54 bpm, normal axis, normal intervals, no evidence of acute ischemia on this EKG. Discharge - Discharge Clinical Impression: Chest pain Qualifiers: Chest pain type: unspecified Qualified Code(s): R07.9 - Chest pain, unspecified Condition: Stable Disposition: ADMITTED OBSERVATION Admitting Provider: Hospitalist - Dr. Helms Unit Admitted: Telemetry
[2018-02-24] MEDS ORDERED: GLUCAGON,HUMAN RECOMB 1 MG INJ IM PRN ×2 (21:28→23:08)
[2018-02-24] MEDS ORDERED: PROMETHAZINE HCL INJ 25 MG/1 ML VIAL IV PRN (21:28)
[2018-02-24] MEDS ORDERED: PROMETHAZINE HCL 25 MG TABLET PO PRN (21:28)
[2018-02-24] MEDS ORDERED: DEXTROSE 40% GEL 15 GM TUBE PO PRN ×4 (21:28→23:08)
[2018-02-24] MEDS ORDERED: DEXTROSE 50%-WATER 25 GM/50 ML DISP.SYRIN IV PRN ×4 (21:28→23:08)
[2018-02-24] MEDS ORDERED: MAG HYDROX/AL HYDROX/SIMETH SUSP 30 ML UDCUP PO PRN (21:28)
[2018-02-24] MEDS ORDERED: ACETAMINOPHEN 325 MG TABLET PO PRN (21:28)
[2018-02-24] MEDS ORDERED: NORMAL SALINE 1000 ML 1,000 ML IV PRN (21:28)
[2018-02-24] MEDS ORDERED: PANTOPRAZOLE SODIUM 40 MG VIAL IV ONE (22:40)
--- NOTE | 2018-02-24 22:50 | EKG REPORT ---
SEVERITY:- ABNORMAL ECG - SINUS OR ECTOPIC ATRIAL RHYTHM NONSPECIFIC T ABNORMALITIES, ANT-LAT LEADS : Confirmed by: Kobi Cannon MD 24-Feb-2018 22:49:44
[2018-02-24] MEDS ORDERED: INSULIN LISPRO 100 UNIT/ML 3 ML VIAL SUBCUT PRN (23:08)
--- NOTE | 2018-02-24 23:12 | PDOC H&P ---
History of Present Illness Admission Date/PCP: 02/24/18 19:42 Donald ROJO Patient complains of: Chest pain History of Present Illness: AME HOPE I is a 87 year old female who was sitting watching TV yesterday in the [facility] and started with chest discomfort, refers the middle of her chest , 8/10 in intensity, radiated to her throat, achy in nature. The chest pain change in intensity but has been persistent overnight until today that she decided to come to the emergency department as she said that was enough. Associated with nausea and dizziness. Denies shortness of breath, diaphoresis, lightheadedness, fever, chills. Tells me that she has been having indigestion lately. The pain has not been worsening with walking. Complains of bilateral lower extremities pain that she has peripheral vascular disease. She never had a stress test. Daughter who is at the bedside tells me that she is having some memory problems for the last 2 days to me seems to be at her baseline mental status, probably early dementia. EKG unremarkable, troponin VII 1 negative. Chest x-ray negative. CT head negative. Past Medical History Cardiac Medical History: Reports: Hyperlipidema, Hypertension, Peripheral Vascular Disease Denies: Coronary Artery Disease, Myocardial Infarction - PAD FOLLOWED IN [facility] [id number] Pulmonary Medical History: Denies: Asthma, Bronchitis, Chronic Obstructive Pulmonary Disease (COPD), Pneumonia, Tuberculosis Neurological Medical History: Denies: Seizures Endocrine Medical History: Reports: Diabetes Mellitus Type 2 GI Medical History: Denies: Hepatitis, Hiatal Hernia Musculoskeltal Medical History: Reports: Arthritis - legs Hematology: Denies: Anemia, Sickle Cell Disease Past Surgical History Past Surgical History: Reports: Hysterectomy, Vascular Surgery - Recently had a left femoral artery stent placed Denies: Amputation, Pacemaker Social History Information Source: Patient Smoking Status: Former Smoker Frequency of Alcohol Use: None Hx Recreational Drug Use: No Hx Prescription Drug Abuse: No Family History Family History: Reviewed & Not Pertinent Parental Family History Reviewed: No Children Family History Reviewed: NA Sibling(s) Family History Reviewed.: NA Medication/Allergy Home Medications: Amlodipine Besylate 1 tab PO DAILY 11/23/13 Aspirin [Aspirin 81 mg Chewable Tablet] 81 mg PO QPM 11/23/13 Atenolol [Tenormin 100 mg Tablet] 100 mg PO QPM 11/23/13 Clopidogrel Bisulfate [Plavix 75 mg Tablet] 75 mg PO DAILY 11/23/13 Fenofibrate Nanocrystallized [Tricor 145 mg Tablet] 145 mg PO QPM 11/23/13 Hydrochlorothiazide 50 mg PO DAILY 11/23/13 Potassium Gluconate 550 mg PO DAILY 11/23/13 Ramipril [Altace] 20 mg PO DAILY 11/23/13 Rosuvastatin Calcium [Crestor 10 mg Tablet] 10 mg PO QPM 11/23/13 Acetaminophen [Tylenol Arthritis 650 mg Tablet] 650 mg PO Q6 PRN 10/16/16 Calcium Carbonate [Calcium] 1 tab PO BID 10/16/16 Cholecalciferol (Vitamin D3) [Vitamin D3] 50,000 units PO ASDIR PRN 10/16/16 Pioglitazone HCl [Actos 15 mg Tablet] 1 tab PO DAILY 10/16/16 Ketorolac Tromethamine [Toradol 10 mg Tablet] 10 mg PO Q6HP PRN #20 tablet 11/08 Allergies/Adverse Reactions: cephalexin monohydrate [From Keflex] Allergy (Verified 02/24/18 15:55) RASH, ITCHING Review of Systems Review of Systems: As outlined in the HPI, others negative Physical Exam Vital Signs: Temp Pulse Resp BP Pulse Ox 98.8 F 52 L 17 129/58 H 95 02/24/18 15:42 02/24/18 19:15 02/24/18 22:00 02/24/18 21:16 02/24/18 22:00 Intake & Output 02/23/18 02/24/18 02/25/18 06:59 06:59 06:59 Intake Total 500 Balance 500 Additional comments: General appearance: Well-developed, well-nourished, alert and cooperative, and appears to be in no acute distress Head: Normocephalic Eyes: PEERL, EOMI, vision is grossly intact. Ears: External auditory canal and tympanic membranes clear, hearing grossly intact. Nose: No nasal discharge. Throat: Oral cavity and pharynx normal. No inflammation, swelling, exudate or lesions. Neck: Neck supple, nontender without lymphadenopathy, masses or thyromegaly. Cardiac: Normal S1 and S2. No S3, S4 or murmurs. Rhythm is regular. There is no peripheral edema, cyanosis or pallor. Extremities are warm and well perfused. Capillary refill is less than 2 seconds. No carotid bruits. Lungs: Clear to auscultation and percussion without rales, rhonchi, wheezing or diminished breath sounds. Not using accessory muscles. Abdomen: Positive bowel sounds. Soft. Nondistended, nontender. No guarding or rebound. No masses. No hepatosplenomegaly Extremities: No significant deformity or joint abnormality. No edema. Peripheral pulses intact. No varicosities. Neurological: Cranial nerves II through XII grossly intact. Strength and sensation symmetric and intact throughout. Reflexes 2+ throughout. Skin: Skin normal color, texture and turgor with no lesions or eruptions, warm and dry. Psychiatric: The mental examination revealed the patient was oriented to person , place, and time. The patient was able to demonstrate good judgment on recent , without hallucinations, abnormal affect or abnormal behaviors. Results Laboratory Results: 02/24/18 02/24/18 02/24/18 17:40 17:40 17:40 WBC 7.3 RBC 5.22 Hgb 15.2 Hct 44.9 MCV 86 MCH 29.1 MCHC 33.9 RDW 12.8 Plt Count 212 Seg Neutrophils % 74.1 Lymphocytes % 14.6 Monocytes % 9.9 Eosinophils % 0.8 Basophils % 0.6 Absolute Neutrophils 5.4 Absolute Lymphocytes 1.1 Absolute Monocytes 0.7 Absolute Eosinophils 0.1 Absolute Basophils 0.0 PT 13.5 INR 0.98 APTT 23.6 Sodium 140.5 Potassium 3.7 Chloride 101 Carbon Dioxide 26 Anion Gap 14 BUN 32 H Creatinine 1.37 H Est GFR ( Amer) 44 L Est GFR (Non-Af Amer) 37 L Glucose 82 Calcium 9.9 Total Bilirubin 0.7 Direct Bilirubin 0.5 H AST 33 ALT 29 Alkaline Phosphatase 49 Creatine Kinase 61 CK-MB (CK-2) Troponin I Total Protein 7.2 Albumin 4.2 02/24/18 17:40 WBC RBC Hgb Hct MCV MCH MCHC RDW Plt Count Seg Neutrophils % Lymphocytes % Monocytes % Eosinophils % Basophils % Absolute Neutrophils Absolute Lymphocytes Absolute Monocytes Absolute Eosinophils Absolute Basophils PT INR APTT Sodium Potassium Chloride Carbon Dioxide Anion Gap BUN Creatinine Est GFR ( Amer) Est GFR (Non-Af Amer) Glucose Calcium Total Bilirubin Direct Bilirubin AST ALT Alkaline Phosphatase Creatine Kinase CK-MB (CK-2) 0.59 Troponin I < 0.012 Total Protein Albumin Impressions: Chest X-Ray 02/24/18 16:04 IMPRESSION: NO ACUTE RADIOGRAPHIC FINDING IN THE CHEST. Head CT 02/24/18 16:04 IMPRESSION: NORMAL BRAIN CT WITHOUT CONTRAST. EVIDENCE OF ACUTE STROKE: NO. Assessment & Plan - Diagnosis (1) Chest pain Qualifiers: Chest pain type: unspecified Qualified Code(s): R07.9 - Chest pain, unspecified Is this a current diagnosis for this admission?: Yes Plan: Patient comes with new onset chest pain, atypical symptoms, I am suspecting secondary to reflux disease. I will keep the patient under telemetry monitoring overnight and complete cardiac enzymes total of 3. The patient declined to do any stress test as she doesn't want to have further test if this comes positive. I will give her 1 dose of IV Protonix and p.o. Maalox. (2) Diabetes mellitus type 2 in obese Is this a current diagnosis for this admission?: Yes Plan: He checks q. before meals and at bedtime, insulin lispro sliding scale and hypoglycemia protocol. Continue pioglitazone. (3) Hypertension Is this a current diagnosis for this admission?: Yes Plan: Continue home antihypertensive medications. Apparently patient is on amlodipine , ramipril and beta-juan ramon. We have to 5 medications with her pharmacy. (4) CAD (coronary artery disease) Is this a current diagnosis for this admission?: Yes Plan: Continue with aspirin and Plavix (5) PVD (peripheral vascular disease) Is this a current diagnosis for this admission?: Yes Plan: Continue with Plavix - Time Time Spent: 30 to 50 Minutes
[2018-02-25 06:30] LABS: APPEARANCE,URINE CLEAR; BILIRUBIN,URINE NEGATIVE (NEGATIVE); COLOR,URINE STRAW; GLUCOSE, URINE NEGATIVE (NEGATIVE); KETONES,URINE NEGATIVE (NEGATIVE); LEUKOCYTE ESTERASE,URINE MODERATE (NEGATIVE); NITRITE,URINE NEGATIVE (NEGATIVE); PROTEIN,URINE NEGATIVE (NEGATIVE); URINE SPECIFIC GRAVITY 1.006; UROBILINOGEN,URINE NEGATIVE mg/dL (<2.0)
[2018-02-25 06:55] LABS: ANION GAP 9 (5-19); BLOOD UREA NITROGEN 28 mg/dL (7-20); CALCIUM 9.1 mg/dL (8.4-10.2); CARBON DIOXIDE 26 mmol/L (22-30); CHLORIDE 103 mmol/L (98-107); GLUCOSE 73 mg/dL (75-110); POTASSIUM 3.2 mmol/L (3.6-5.0); SODIUM 137.8 mmol/L (137-145)
[2018-02-25] MEDS ORDERED: POLYETHYLENE GLYCOL 3350 POWDER 17 GM/1 PACKET PO PRN (09:38)
[2018-02-25] MEDS ORDERED: MAGNESIUM HYDROXIDE SUSP 30 ML UDCUP PO PRN (09:38)
[2018-02-25] MEDS ORDERED: ENOXAPARIN SODIUM INJ 40 MG/0.4 ML DISP.SYRIN SUBCUT SCH (10:00)
[2018-02-25] MEDS ORDERED: ACETAMINOPHEN 325 MG TABLET PO PRN (10:00)
[2018-02-25] MEDS ORDERED: PROMETHAZINE HCL INJ 25 MG/1 ML VIAL IV PRN (10:00)
[2018-02-25 16:20] VITALS: BP 129/76
== END 2018-02-25 16:45 | disposition home or self-care (01) ==
LOC: ER 15:32 → EH 19:42 → 3S 23:02
PROVIDERS: ADMIT Internal Medicine; ATTEND Internal Medicine
DX: R07.89 Other chest pain (principal); E11.51 Type 2 diabetes mellitus with diabetic peripheral angiopathy without gangrene; I10 Essential (primary) hypertension; E66.9 Obesity, unspecified; I25.10 Atherosclerotic heart disease of native coronary artery without angina pectoris; R06.02 Shortness of breath; R11.0 Nausea; R41.0 Disorientation, unspecified; M13.88 Other specified arthritis, other site; R00.1 Bradycardia, unspecified; H53.8 Other visual disturbances; Z87.891 Personal history of nicotine dependence; Z98.890 Other specified postprocedural states; Z90.710 Acquired absence of both cervix and uterus; Z95.828 Presence of other vascular implants and grafts
CPT/HCPCS: 93005; 99285; 96361; 96374; 36415 ×2; 82553; 82962 ×2; 82550; 83735; 85025; 85610; 85730; 80048; 80053; 81001; 84484 ×2; 83036; 71045; 70450; 93010; 97110; 97116; 97161; J3490 ×2; J1650; C9113; J2405; J7030; J7040; G8978; G8979; G8980; S0164

== ENCOUNTER 2018-03-14 09:39 | Emergency (ER) | payer MEDICARE, BC ==
[2018-03-14 10:10] LABS: APPEARANCE,URINE CLEAR; BILIRUBIN,URINE NEGATIVE (NEGATIVE); COLOR,URINE STRAW; GLUCOSE, URINE NEGATIVE (NEGATIVE); KETONES,URINE NEGATIVE (NEGATIVE); LEUKOCYTE ESTERASE,URINE NEGATIVE (NEGATIVE); NITRITE,URINE NEGATIVE (NEGATIVE); PROTEIN,URINE NEGATIVE (NEGATIVE); URINE SPECIFIC GRAVITY 1.009; UROBILINOGEN,URINE NEGATIVE mg/dL (<2.0)
[2018-03-14 10:17] LABS: ABSOLUTE BASOPHILS # (AUTO) 0.1 10^3/uL (0.0-0.2); ABSOLUTE EOSINOPHILS # (AUTO) 0.1 10^3/uL (0.0-0.6); ABSOLUTE LYMPHOCYTES (AUTO) 1.2 10^3/uL (0.5-4.7); ABSOLUTE MONOCYTES (AUTO) 0.8 10^3/uL (0.1-1.4); ABSOLUTE NEUT (AUTO) 5.1 10^3/uL (1.7-8.2); BASOPHILS % (AUTO) 0.8 % (0-2); HEMOGLOBIN 14.4 g/dL (12.0-15.5); LYMPHOCYTES % (AUTO) 16.2 % (13-45); MEAN CORPUSCULAR HEMOGLOBIN 29.1 pg (27.0-33.4); MEAN CORPUSCULAR VOLUME 83 fl (80-97); MONOCYTES % (AUTO) 11.3 % (3-13); PLATELET COUNT 239 10^3/uL (150-450); RED BLOOD COUNT 4.93 10^6/uL (3.72-5.28); RED CELL DISTRIBUTION WIDTH 12.6 % (11.5-14.0); SEGMENTED NEUTROPHILS % (AUTO) 70.7 % (42-78); TOTAL CELLS COUNTED % (AUTO) 100 %; WHITE BLOOD COUNT 7.2 10^3/uL (4.0-10.5)
[2018-03-14 10:28] LABS: ALANINE AMINOTRANSFERASE 29 U/L (9-52); ALBUMIN 3.8 g/dL (3.5-5.0); ALKALINE PHOSPHATASE 52 U/L (38-126); ANION GAP 9 (5-19); ASPARTATE AMINO TRANSFERASE 56 U/L (14-36); BILIRUBIN,DIRECT 0.6 mg/dL (0.0-0.4); BILIRUBIN,TOTAL 0.9 mg/dL (0.2-1.3); BLOOD UREA NITROGEN 30 mg/dL (7-20); CALCIUM 9.8 mg/dL (8.4-10.2); CARBON DIOXIDE 28 mmol/L (22-30); CHLORIDE 93 mmol/L (98-107); CREATINE KINASE 48 U/L (30-135); GLUCOSE 119 mg/dL (75-110); POTASSIUM 4.1 mmol/L (3.6-5.0); SODIUM 130.3 mmol/L (137-145); TOTAL PROTEIN 6.6 g/dL (6.3-8.2)
--- NOTE | 2018-03-14 10:29 | ER Document Report ---
ED General - General Chief Complaint: Doesn't Feel Right Stated Complaint: NOT FEELING WELL Time Seen by Provider: 03/14/18 10:26 Mode of Arrival: Medic Information source: Patient Notes: 87-year-old female brought to the emergency department by EMS for complaints of abdominal pain. Patient states that the pain is been intermittent over the last couple of weeks. She describes the pain as an aching sensation located in the right lower quadrant. There is no radiation of the pain. There is no alleviating or exacerbating factors. Patient states that she has discussed this with her primary care physician. She states that no one can find the cause of her pain. She is having some associated nausea and constipation. She denies any diarrhea, dysuria, hematuria. Patient denies any chest pain, shortness of breath, fever, chills. TRAVEL OUTSIDE OF THE [place] IN LAST 30 DAYS: No - HPI Onset: Last week Onset/Duration: Waxing and waning Quality of pain: Dull Severity: Mild Pain Level: 2 Associated symptoms: Nausea, Other - Constipation Exacerbated by: Denies Relieved by: Denies Similar symptoms previously: Yes Recently seen / treated by doctor: Yes - Related Data Allergies/Adverse Reactions: cephalexin monohydrate [From Keflex] Allergy (Verified 02/24/18 15:55) RASH, ITCHING Past Medical History - General Information source: Patient - Social History Smoking Status: Never Smoker Family History: Reviewed & Not Pertinent - Past Medical History Cardiac Medical History: Reports: Hx Hypercholesterolemia, Hx Hypertension, Hx Peripheral Vascular Disease Denies: Hx Coronary Artery Disease, Hx Heart Attack - PAD FOLLOWED IN [facility] [id number] Pulmonary Medical History: Denies: Hx Asthma, Hx Bronchitis, Hx COPD, Hx Pneumonia, Hx Tuberculosis Neurological Medical History: Denies: Hx Cerebrovascular Accident, Hx Seizures Endocrine Medical History: Reports: Hx Diabetes Mellitus Type 2 Renal/ Medical History: Denies: Hx Peritoneal Dialysis GI Medical History: Denies: Hx Hepatitis, Hx Hiatal Hernia, Hx Ulcer Musculoskeletal Medical History: Reports Hx Arthritis - legs Infectious Medical History: Denies: Hx Hepatitis Past Surgical History: Reports: Hx Breast Surgery - left lumpectomy, Hx Hysterectomy, Hx Vascular Surgery - Recently had a left femoral artery stent placed. Denies: Hx Open Heart Surgery, Hx Pacemaker - Immunizations Hx Diphtheria, Pertussis, Tetanus Vaccination: Yes Hx Pneumococcal Vaccination: 12/17/15 Review of Systems - Review of Systems Constitutional: No symptoms reported EENT: No symptoms reported Cardiovascular: No symptoms reported Respiratory: No symptoms reported Gastrointestinal: Abdominal pain, Nausea, Constipation Genitourinary: No symptoms reported Female Genitourinary: No symptoms reported Musculoskeletal: No symptoms reported Skin: No symptoms reported Hematologic/Lymphatic: No symptoms reported Neurological/Psychological: No symptoms reported -: Yes All other systems reviewed and negative Physical Exam - Vital signs Vitals: BP 154/51 H 03/14/18 09:46 - Notes Notes: PHYSICAL EXAMINATION: GENERAL: Well-appearing, well-nourished and in no acute distress. HEAD: Atraumatic, normocephalic. EYES: Pupils equal round and reactive to light, extraocular movements intact, conjunctiva are normal. ENT: Nares patent, oropharynx clear without exudates. Moist mucous membranes. NECK: Normal range of motion, supple without lymphadenopathy LUNGS: Breath sounds clear to auscultation bilaterally and equal. No wheezes rales or rhonchi. HEART: Regular rate and rhythm without murmurs ABDOMEN: Soft, tenderness to palpation in the right lower quadrant. No guarding , no rebound. No masses appreciated. Female : deferred Musculoskeletal: Normal range of motion, no pitting or edema. No cyanosis. NEUROLOGICAL: Cranial nerves grossly intact. Normal speech, normal gait. Normal sensory, motor exams PSYCH: Normal mood, normal affect. SKIN: Warm, Dry, normal turgor, no rashes or lesions noted. Course - Re-evaluation Re-evalutation: 03/14/18 10:28 EKG: Ventricular rate 43, RI interval 168, QRS duration 96, QTc 396, sinus bradycardia. Similar to EKG done on 02/24/18. 03/14/18 10:37 Patient on atenolol and amlodipine for HTN. Patient has had a hysterectomy and appendectomy previously. 03/14/18 10:40 03/14/18 13:34 Labs and imaging obtained. No acute process was identified. On reevaluation, patient states that her pain has resolved. Instructed the patient to follow-up with her primary care physician this week, to take her medications prescribed as directed, and to return to the emergency department for worsening symptoms. The patient is agreeable to plan of care. - Vital Signs Vital signs: Temp Pulse Resp BP Pulse Ox 97.9 F 46 L 20 149/44 H 96 03/14/18 09:47 03/14/18 09:47 03/14/18 12:01 03/14/18 11:01 03/14/18 12:01 - Laboratory Result Diagrams: 03/14/18 09:25 03/14/18 09:25 Laboratory results interpreted by me: 03/14/18 09:25 Sodium 130.3 L Chloride 93 L BUN 30 H Est GFR ( Amer) 52 L Est GFR (Non-Af Amer) 43 L Glucose 119 H Direct Bilirubin 0.6 H AST 56 H Discharge - Discharge Clinical Impression: Abdominal pain Qualifiers: Abdominal location: left lower quadrant Qualified Code(s): R10.32 - Left lower quadrant pain Condition: Good Disposition: HOME, SELF-CARE Instructions: Abdominal Pain ([facility])
[2018-03-14] MEDS ORDERED: FENTANYL CITRATE INJ/PF 100 MCG/2 ML AMPUL IV ONE (10:34)
[2018-03-14] MEDS ORDERED: ONDANSETRON 4 MG TAB.RAPDIS PO ONE (10:34)
[2018-03-14 10:50] LABS: CREATINE KINASE MB 0.63 ng/mL (<4.55); TROPONIN I 0.014 ng/mL
[2018-03-14] MEDS ORDERED: NORMAL SALINE 1000 ML 1,000 ML IV ONE (12:20)
--- NOTE | 2018-03-14 12:29 | RADIOLOGY REPORT (SQ) ---
EXAM DESCRIPTION: CT ABD/PELVIS NO ORAL OR IV COMPLETED DATE/TIME: 03/14/2018 12:02 pm REASON FOR STUDY: RLQ abdominal pain COMPARISON: None. TECHNIQUE: CT scan of the abdomen and pelvis performed without intravenous or oral contrast. Images reviewed with lung, soft tissue, and bone windows. Reconstructed coronal and sagittal MPR images revi ewed. All images stored on PACS. All CT scanners at this facility use dose modulation, iterative reconstruction, and/or weight based d osing when appropriate to reduce radiation dose to as low as reasonably achievable (ALARA). [facility]: Dose Right [facility]: CareDose [facility]: Dose Right [facility]: Teradose 4D [facility]: Smart TLBX.me RADIATION DOSE: CT Rad equipment meets quality standard of care and radiation dose reduction techniq ues were employed. CTDIvol: 15.9 mGy. DLP: 914 mGy-cm.mGy. LIMITATIONS: None. FINDINGS: LOWER CHEST: No significant findings. No nodules or infiltrates. NON-CONTRASTED LIVER, SPLEEN, ADRENALS: Evaluation limited by lack of IV contrast. No identified sign ificant masses. PANCREAS: No masses. No peripancreatic inflammatory changes. GALLBLADDER: Gallstone is identified. No inflammatory changes to suggest cholecystitis. RIGHT KIDNEY AND URETER: No suspicious masses. Assessment limited by lack of IV contrast. No signif icant calcifications. No hydronephrosis or hydroureter. LEFT KIDNEY AND URETER: No suspicious masses. Assessment limited by lack of IV contrast. No signifi cant calcifications. No hydronephrosis or hydroureter. AORTA AND RETROPERITONEUM: No aneurysm. Extensive vascular calcifications are identified. No retrop eritoneal masses or adenopathy. BOWEL AND PERITONEAL CAVITY: No obvious masses or inflammatory changes. No free fluid. Multiple dive rticulae are identified in the distal descending colon and sigmoid colon without CT evidence for dive rticulitis. APPENDIX: Status post appendectomy PELVIS, BLADDER, AND ABDOMINAL WALL:No abnormal masses. No free fluid. Bladder normal. Small umbilic al hernia containing fat is identified. There is an adjacent ventral hernia containing fat just to t he left of the small fat containing umbilical hernia. BONES: A lumbar scoliosis convex to the right is identified with associated degenerative changes. OTHER: No other significant finding. IMPRESSION: Small fat containing umbilical hernia and adjacent ventral hernia containing fat as note d above. Other findings as noted above COMMENT: Quality ID # [id number]: Final reports with documentation of one or more dose reduction techniques (e.g., Automated exposure control, adjustment of the mA and/or kV according to patient size, use of iterative reconstruction technique) TECHNICAL DOCUMENTATION: JOB ID: [id number] [employer]- All Rights Reserved Reading location - IP/workstation name: [email or web address]
--- NOTE | 2018-03-14 14:39 | EKG REPORT ---
SEVERITY:- BORDERLINE ECG - SINUS OR ECTOPIC ATRIAL BRADYCARDIA BORDERLINE T ABNORMALITIES, ANT-LAT LEADS : Confirmed by: Penelope Schumacher MD 14-Mar-2018 14:38:52
[2018-03-14 15:05] VITALS: BP 133/51
== END 2018-03-14 14:50 | disposition home or self-care (01) ==
LOC: ER 09:39
DX: K59.00 Constipation, unspecified (principal); R11.0 Nausea; R00.1 Bradycardia, unspecified; E11.51 Type 2 diabetes mellitus with diabetic peripheral angiopathy without gangrene; I10 Essential (primary) hypertension; Z79.899 Other long term (current) drug therapy; Z88.1 Allergy status to other antibiotic agents
CPT/HCPCS: 93005; 99284; 96360; 36415; 82553; 82550; 83690; 85025; 80053; 81001; 84484; 74176; 93010; A9270; J3010; S0119

== ENCOUNTER 2018-03-17 06:45 | Emergency (ER) | payer MEDICARE, BC ==
--- NOTE | 2018-03-17 07:18 | ER Document Report ---
ED GI/ - General Mode of Arrival: Ambulatory Information source: Patient TRAVEL OUTSIDE OF THE [place] IN LAST 30 DAYS: No - General Chief Complaint: Constipation Stated Complaint: DIFFICULTY URINATING Time Seen by Provider: 03/17/18 07:06 Notes: 87 year old female that presents to the emergency department with complaints of urinary retention since 0130 this morning. Patient has been feeling generally unwell for the last few weeks and has been seen here twice in the last few weeks. Patient states she was recently constipated and she feels she still is now. (LEANDRA STEIN) - Related Data Allergies/Adverse Reactions: cephalexin monohydrate [From Keflex] Allergy (Verified 02/24/18 15:55) RASH, ITCHING Past Medical History - General Information source: Patient - Social History Smoking Status: Never Smoker Cigarette use (# per day): No Frequency of alcohol use: None Drug Abuse: None Lives with: Family Family History: Reviewed & Not Pertinent Patient has suicidal ideation: No Patient has homicidal ideation: No - Past Medical History Cardiac Medical History: Reports: Hx Hypercholesterolemia, Hx Hypertension, Hx Peripheral Vascular Disease Comment Only: Hx Heart Attack - PAD FOLLOWED IN [facility] [id number] Endocrine Medical History: Reports: Hx Diabetes Mellitus Type 2 Musculoskeletal Medical History: Reports Hx Arthritis - legs Past Surgical History: Reports: Hx Appendectomy, Hx Breast Surgery - left lumpectomy, Hx Hysterectomy, Hx Vascular Surgery - Recently had a left femoral artery stent placed - Immunizations Hx Diphtheria, Pertussis, Tetanus Vaccination: Yes Hx Pneumococcal Vaccination: 12/17/15 Review of Systems - Review of Systems Constitutional: No symptoms reported EENT: No symptoms reported Cardiovascular: No symptoms reported Respiratory: No symptoms reported Gastrointestinal: See HPI, Constipation Genitourinary: See HPI, Retention Female Genitourinary: No symptoms reported Musculoskeletal: No symptoms reported Skin: No symptoms reported Hematologic/Lymphatic: No symptoms reported Neurological/Psychological: No symptoms reported -: Yes All other systems reviewed and negative Physical Exam - Vital signs Vitals: Temp Pulse Resp BP Pulse Ox 97.7 F 45 L 20 146/45 H 99 03/17/18 06:50 03/17/18 06:50 03/17/18 06:50 03/17/18 06:50 03/17/18 06:50 - Notes Notes: Physical Exam: General: Alert, pleasant, elderly. HEENT: Normocephalic. Atraumatic. PERRL. Extraocular movements intact. Oropharynx clear. Neck: Supple. Non-tender. Respiratory: No respiratory distress. Clear and equal breath sounds bilaterally. Cardiovascular: Regular rate and rhythm. Abdominal: Obese. Non-tender. No distension. Normal Bowel Sounds. Back: Non-tender. No deformity or step off. Extremities: Moves all four extremities. Upper extremities: Normal inspection. Normal ROM. Lower extremities: Normal inspection. No edema. Normal ROM. Neurological: Normal cognition. AAOx4. Normal speech. Psychological: Normal affect. Normal Mood. Skin: Warm. Dry. Normal color. (LEANDRA STEIN) Course - Re-evaluation Re-evalutation: 03/17/18 09:20 The Mcdaniel catheter was inserted and there was not a lot of urine drained. The patient received the enema and had quite good results and feels much better. I suspect the difficulty urinating was due to the pressure of the fecal load on the bladder. (J LUIS FRANCO) - Vital Signs Vital signs: Temp Pulse Resp BP Pulse Ox 97.7 F 45 L 20 146/45 H 99 03/17/18 06:50 03/17/18 06:50 03/17/18 06:50 03/17/18 06:50 03/17/18 06:50 Discharge - Discharge Clinical Impression: Constipation Qualifiers: Constipation type: unspecified constipation type Qualified Code(s): K59.00 - Constipation, unspecified Condition: Stable Disposition: HOME, SELF-CARE Additional Instructions: Constipation Constipation is a common problem. It is especially likely as you get older. Constipation is a common cause of abdominal pain, but sometimes causes no symptoms at all. Causes of constipation include certain medications, dehydration, diets, inactivity, and low-fiber intake. Rarely, it can be a symptom of underlying disease. The physician has evaluated you for this. Avoid constipation by eating a diet high in fiber, fruits, and vegetables. Drink plenty of liquids. Get regular exercise. If possible, avoid constipating medicines like narcotic pain medication. Some vitamin tablets can cause constipation. Stool softeners may be needed for difficult cases. An excellent stool softener is Konsyl which is available at [employer], and [employer] drug [employer]. Just add a teaspoon to a glass of pineapple or orange juice daily or twice a day if needed. Laxatives are useful for occasional constipation. You should use them only when necessary. Too-frequent use can make your bowels dependent on them. Some over the counter laxatives available without prescription are: Milk of Magnesia, 1-2 tablespoons twice a day Dulcolax, 5 mg pill or 10 mg suppository. Citrate of Magnesia, 4-5 ounces a day for a day or two For acute constipation, Fleet's Enemas and Dulcolax suppositories are helpful. Chronic, halfway use of laxatives or enemas is not a good idea. Your bowel may become dependant on them. You do not need to have a bowel movement every day. Many people do fine with a bowel movement every three or four days. You should call your doctor or return for re-evaluation if you pass blood in the stool, or if you develop fever or increasing abdominal pain. Take MiraLAX once every day to help prevent constipation. Drink plenty of fluids every day. Follow-up with your doctor if not improving. RETURN TO THE EMERGENCY ROOM IF ANY NEW OR WORSENING SYMPTOMS. Referrals: DIPTI YOUNG PA-C [Primary Care Provider] - Follow up as needed Scribe Attestation: 03/17/18 08:34 I personally performed the services described in the documentation, reviewed and edited the documentation which was dictated to the scribe in my presence, and it accurately records my words and actions. (J LUIS FRANCO) Scribe Documentation - Scribe Written by Moris:: Moris Porter, 03/17/2018 [id number] acting as scribe for :: Gaston
--- NOTE | 2018-03-17 07:37 | RADIOLOGY REPORT (SQ) ---
EXAM DESCRIPTION: XR ABDOMEN SUPINE AND ERECT WITH CHEST (ABD ACUTE SERIES) COMPLETED DATE/TME: 03/17/2018 07:07 CLINICAL HISTORY: 87 years Female, constipated COMPARISON: None. NUMBER OF VIEWS/TECHNIQUE: 3 LIMITATIONS: None. FINDINGS: Intestinal gas pattern is within normal limits. No suspicious calcification. Grossly intact skeletal structures. No acute cardiopulmonary findings. IMPRESSION: No acute findings. EXAM DESCRIPTION: XR ABDOMEN SUPINE AND ERECT WITH CHEST (ABD ACUTE SERIES) COMPLETED DATE/TME: 03/17/2018 07:07 CLINICAL HISTORY: 87 years Female, constipated COMPARISON: None. NUMBER OF VIEWS/TECHNIQUE: 2 LIMITATIONS: None. FINDINGS: Intestinal gas pattern is within normal limits. Paucity of bowel gas. Colonic stool retention. No suspicious calcification. Grossly intact skeletal structures. No acute cardiopulmonary findings. Atherosclerosis. Moderate lumbar dextroconvexity. Mild-moderate L2 compression deformity. IMPRESSION: No acute findings.
[2018-03-17] MEDS ORDERED: MINERAL OIL 30 ML UDCUP PR ONE (07:42)
[2018-03-17] MEDS ORDERED: MAGNESIUM CITRATE 296 ML BOTTLE PO ONE (07:42)
[2018-03-17 08:26] LABS: APPEARANCE,URINE CLEAR; BILIRUBIN,URINE NEGATIVE (NEGATIVE); COLOR,URINE STRAW; GLUCOSE, URINE NEGATIVE (NEGATIVE); KETONES,URINE NEGATIVE (NEGATIVE); LEUKOCYTE ESTERASE,URINE NEGATIVE (NEGATIVE); NITRITE,URINE NEGATIVE (NEGATIVE); PROTEIN,URINE NEGATIVE (NEGATIVE); URINE SPECIFIC GRAVITY 1.005; UROBILINOGEN,URINE NEGATIVE mg/dL (<2.0)
[2018-03-17 10:06] VITALS: BP 144/67
== END 2018-03-17 10:00 | disposition home or self-care (01) ==
LOC: ER 06:45
DX: K59.00 Constipation, unspecified (principal); R33.9 Retention of urine, unspecified; I10 Essential (primary) hypertension; E11.51 Type 2 diabetes mellitus with diabetic peripheral angiopathy without gangrene; Z88.1 Allergy status to other antibiotic agents
CPT/HCPCS: 99284; 51702; 87086; 82962; 81001; 74022; J3490 ×2

== ENCOUNTER 2018-03-24 07:29 | Inpatient (IN) | payer MEDICARE, BC ==
[2018-03-24] MEDS ORDERED: RINGERS SOLUTION,LACTATED 1,000 ML IV PRN (07:50)
[2018-03-24 07:53] LABS: HEMATOCRIT 44.1 % (36.0-47.0); HEMOGLOBIN 15.7 g/dL (12.0-15.5); MEAN CORPUSCULAR HEMOGLOBIN 29.1 pg (27.0-33.4); MEAN CORPUSCULAR HGB CONC 35.6 g/dL (32.0-36.0); MEAN CORPUSCULAR VOLUME 82 fl (80-97); PLATELET COUNT 262 10^3/uL (150-450); RED BLOOD COUNT 5.41 10^6/uL (3.72-5.28); RED CELL DISTRIBUTION WIDTH 12.7 % (11.5-14.0); WHITE BLOOD COUNT 11.6 10^3/uL (4.0-10.5)
--- NOTE | 2018-03-24 07:57 | ER Document Report ---
ED General - General Chief Complaint: Low Blood Sugar Stated Complaint: POSSIBLE HYPOGLYCEMIA Time Seen by Provider: 03/24/18 07:41 TRAVEL OUTSIDE OF THE [place] IN LAST 30 DAYS: No - HPI Notes: Patient is an 87-year-old female with a history of hypertension, type 2 diabetes , peripheral vascular disease who presents to the ED by EMS complaining of general achiness and fatigue over the last week. Patient states her symptoms have been relatively intermittent. Patient states that she has not been eating or drinking as much lately, but is still able to do so without any difficulties. She is urinating normally and having normal bowel movements. Patient was found by EMS to have a glucose of 52 she was given oral glucose, food, or shoes at that time with a current blood glucose of 348. She was also placed on D10. No other recent illness. Denies any headache, fever, head injury, neck pain, changes in vision/speech/mentation/hearing, URI, sore throat , chest pain, palpitations, syncope, cough, shortness of breath, wheeze, dyspnea , abdominal pain, nausea/vomiting/diarrhea, urinary retention, dysuria, hematuria, loss of control of bowel or bladder, numbness/tingling, saddle anesthesia, muscle paralysis/weakness, or rash. - Related Data Allergies/Adverse Reactions: cephalexin monohydrate [From Keflex] Allergy (Verified 03/24/18 07:41) RASH, ITCHING Past Medical History - Social History Smoking Status: Former Smoker Frequency of alcohol use: None Drug Abuse: None Family History: Reviewed & Not Pertinent Patient has suicidal ideation: No Patient has homicidal ideation: No - Past Medical History Cardiac Medical History: Reports: Hx Hypercholesterolemia, Hx Hypertension, Hx Peripheral Vascular Disease Denies: Hx Coronary Artery Disease Comment Only: Hx Heart Attack - PAD FOLLOWED IN [facility] [id number] Pulmonary Medical History: Denies: Hx Asthma, Hx Bronchitis, Hx COPD, Hx Pneumonia, Hx Tuberculosis Neurological Medical History: Denies: Hx Cerebrovascular Accident, Hx Seizures Endocrine Medical History: Reports: Hx Diabetes Mellitus Type 2 Renal/ Medical History: Denies: Hx Peritoneal Dialysis GI Medical History: Denies: Hx Hepatitis, Hx Hiatal Hernia, Hx Ulcer Musculoskeletal Medical History: Reports Hx Arthritis - legs Infectious Medical History: Denies: Hx Hepatitis Past Surgical History: Reports: Hx Appendectomy, Hx Breast Surgery - left lumpectomy, Hx Hysterectomy, Hx Vascular Surgery - Recently had a left femoral artery stent placed. Denies: Hx Open Heart Surgery, Hx Pacemaker - Immunizations Hx Diphtheria, Pertussis, Tetanus Vaccination: Yes Hx Pneumococcal Vaccination: 12/17/15 Review of Systems - Review of Systems -: Yes All other systems reviewed and negative Physical Exam - Vital signs Vitals: Temp Pulse Resp BP Pulse Ox 97.5 F 62 18 147/64 H 95 03/24/18 07:45 03/24/18 07:45 03/24/18 07:45 03/24/18 07:45 03/24/18 07:45 - Notes Notes: PHYSICAL EXAMINATION: GENERAL: Well-appearing, well-nourished and in no acute distress. A&Ox4. Answers questions appropriately. HEAD: Atraumatic, normocephalic. Non-tender. EYES: Pupils equal round and reactive to light, extraocular movements intact, sclera anicteric, conjunctiva are normal. No nystagmus. vis landaverde intact. ENT: Nares patent and without discharge. oropharynx clear without exudates. No tonsilar hypertrophy or erythema. Moist mucous membranes. NECK: Normal range of motion, supple without lymphadenopathy. No rigidity/ meningismus. No midline tenderness. LUNGS: Breath sounds clear to auscultation bilaterally and equal. No wheezes rales or rhonchi. HEART: Regular rate and rhythm without murmurs, rubs, gallops. ABDOMEN: Soft, nontender, nondistended abdomen. No guarding, no rebound. Normal bowel sounds present. No CVA tenderness bilaterally. Musculoskeletal: Ext's b/l: FROM to passive/active. Strength 5+/5. No deficits noted. No bony tenderness of extremities. Extremities: No cyanosis, clubbing, or edema b/l. Peripheral pulses 2+. Capillary refill less than 2 seconds. No asymmetry. Arian negative bilaterally. NEUROLOGICAL: NIH 0. GCS 15. Cranial nerves grossly intact. Normal speech, normal gait. Normal sensory, motor exams. Reflexes 2+ b/l. DEVONTE's negative. Pronator drift negative. Heel/kate, finger/nose wnl. PSYCH: Normal mood, normal affect. SKIN: Warm, Dry, normal turgor, no rashes or lesions noted. Course - Re-evaluation Re-evalutation: 10/07/18 09:03 Patient is an afebrile, well-hydrated, 87-year-old female who presents to the ED with general achiness/fatigue in the presence of hyponatremia which is new for her from baseline. Vitals are currently acceptable. PE is otherwise unremarkable. NIH 0, GCS 15, cranial nerves grossly intact. Patient is nontoxic-appearing. Sodium of 121.7 currently. Discussed with our hospitalist , Dr. Mead, who accepted patient for admission to the medical floor. Patient is in agreement with admission plan. - Vital Signs Vital signs: Temp Pulse Resp BP Pulse Ox 97.5 F 62 18 147/64 H 95 03/24/18 07:45 03/24/18 07:45 03/24/18 07:45 03/24/18 07:45 03/24/18 07:45 - Laboratory Result Diagrams: 03/24/18 07:38 03/24/18 07:38 Laboratory results interpreted by me: 03/24/18 03/24/18 03/24/18 07:38 07:38 07:38 WBC 11.6 H RBC 5.41 H Hgb 15.7 H Seg Neuts % (Manual) 92 H Lymphocytes % (Manual) 4 L Abs Neuts (Manual) 10.7 H Sodium 121.7 L Chloride 82 L BUN 21 H Glucose 54 L POC Glucose Direct Bilirubin 0.7 H AST 42 H Creatine Kinase 236 H 03/24/18 08:19 WBC RBC Hgb Seg Neuts % (Manual) Lymphocytes % (Manual) Abs Neuts (Manual) Sodium Chloride BUN Glucose POC Glucose 222 H Direct Bilirubin AST Creatine Kinase Discharge - Discharge Clinical Impression: Hyponatremia Condition: Stable Disposition: ADMITTED INPATIENT Admitting Provider: Hospitalist - Dr. Mead Unit Admitted: Medical Floor Referrals: DIPTI YOUNG PA-C [Primary Care Provider] - Follow up as needed
[2018-03-24 08:08] LABS: ALANINE AMINOTRANSFERASE 37 U/L (9-52); ALBUMIN 3.9 g/dL (3.5-5.0); ALKALINE PHOSPHATASE 63 U/L (38-126); ANION GAP 13 (5-19); ASPARTATE AMINO TRANSFERASE 42 U/L (14-36); BILIRUBIN,DIRECT 0.7 mg/dL (0.0-0.4); BLOOD UREA NITROGEN 21 mg/dL (7-20); CALCIUM 9.4 mg/dL (8.4-10.2); CARBON DIOXIDE 27 mmol/L (22-30); CHLORIDE 82 mmol/L (98-107); GLUCOSE 54 mg/dL (75-110); POTASSIUM 3.9 mmol/L (3.6-5.0); SODIUM 121.7 mmol/L (137-145); TOTAL PROTEIN 6.5 g/dL (6.3-8.2)
[2018-03-24] MEDS ORDERED: DEXTROSE 50%-WATER 25 GM/50 ML DISP.SYRIN IV ONE (08:14)
[2018-03-24 08:42] LABS: ABSOLUTE LYMPHOCYTES# (MANUAL) 0.5 10^3/uL (0.5-4.7); ABSOLUTE MONOCYTES # (MANUAL) 0.5 10^3/uL (0.1-1.4); ABSOLUTE NEUTROPHILS# (MANUAL) 10.7 10^3/uL (1.7-8.2); BASOPHILS % (MANUAL) 0 % (0-2); EOSINOPHILS % (MANUAL) 0 % (0-6); LYMPHOCYTES % (MANUAL) 4 % (13-45); MONOCYTES % (MANUAL) 4 % (3-13); SEGMENTED NEUTROPHILS % (MAN) 92 % (42-78); TOTAL CELLS COUNTED 100
[2018-03-24 08:43] LABS: PLATELET COMMENT ADEQUATE; RBC MORPHOLOGY COMMENT NORMO-CYTIC/CHROMIC
[2018-03-24] MEDS ORDERED: ACETAMINOPHEN 650 MG SUPP.RECT PR PRN (09:10)
[2018-03-24] MEDS ORDERED: ONDANSETRON 4 MG TAB.RAPDIS PO PRN (09:10)
[2018-03-24] MEDS ORDERED: TEMAZEPAM 7.5 MG CAPSULE PO PRN (09:10)
[2018-03-24] MEDS ORDERED: ACETAMINOPHEN 325 MG TABLET PO PRN (09:10)
[2018-03-24 09:24] LABS: APPEARANCE,URINE SLIGHTLY-CLOUDY; BILIRUBIN,URINE NEGATIVE (NEGATIVE); COLOR,URINE YELLOW; GLUCOSE, URINE >=500 mg/dL (NEGATIVE); KETONES,URINE NEGATIVE (NEGATIVE); LEUKOCYTE ESTERASE,URINE NEGATIVE (NEGATIVE); NITRITE,URINE POSITIVE (NEGATIVE); PROTEIN,URINE NEGATIVE (NEGATIVE); URINE SPECIFIC GRAVITY 1.009; UROBILINOGEN,URINE NEGATIVE mg/dL (<2.0)
[2018-03-24] MEDS: NORMAL SALINE 1000 ML 1,000 ML IV PRN ×2 (10:22→18:00)
[2018-03-24] MEDS: FAMOTIDINE 20 MG TABLET PO SCH ×2 (12:26→21:44)
[2018-03-24] MEDS: DOCUSATE SODIUM 100 MG CAPSULE PO SCH ×2 (12:26→17:59)
[2018-03-24] MEDS: ENOXAPARIN SODIUM INJ 30 MG/0.3 ML DISP.SYRIN SUBCUT SCH (12:26)
[2018-03-24] MEDS: POLYETHYLENE GLYCOL 3350 POWDER 17 GM/1 PACKET PO SCH (14:14)
[2018-03-24] MEDS: NYSTATIN CREAM 15 GM TP SCH ×3 (14:20→23:15)
--- NOTE | 2018-03-24 16:26 | PDOC H&P ---
History of Present Illness Admission Date/PCP: 03/24/18 09:20 DIPTI YOUNG PA-C Patient complains of: Malaise History of Present Illness: AME HOPE I is a 87 year old female who presented to the emergency room with a 2 week history of malaise. She describes her malaise as a generalized achiness and fatigue with overall feeling of unwellness which has been gradually increasing in intensity over the last 2 weeks. She describes her present sensation of malaise as severe but admits that her symptoms have waxed and waned in relative intensity without regard to the time of day or night or the activity in which she might be engaged. Her malaise has been accompanied by nausea without vomiting and a significant decrease in appetite accompanied by a significant decrease in oral fluid intake. She has a history of diabetes mellitus type 2, essential hypertension and atherosclerotic peripheral vascular disease. She has not noted any particular symptoms related to hypoglycemia but she was found to have a blood sugar of 52 when it was checked by the EMS and she was given oral glucose. She did not feel that this made a significant difference in her overall feeling of well-being but it did raise her blood sugar to 348. She denies prior similar episodes and has not identified any aggravating or ameliorating factors for her malaise. She denies diarrhea, constipation, dyspnea, cough, chest pain, palpitations, fever, chills, headache , sore throat, rash, dysphagia, dysuria, hematuria, focal weakness, paresthesias , urinary and fecal incontinence. In the emergency room she was found to have a serum sodium of 121.7 with an otherwise unremarkable evaluation. She was treated with IV lactated Ringer's and was subsequently admitted to the hospitalist service for further treatment. Past Medical History Cardiac Medical History: Reports: Hyperlipidema, Hypertension, Peripheral Vascular Disease Denies: Coronary Artery Disease Comment Only: Myocardial Infarction - PAD FOLLOWED IN [facility] [id number] Pulmonary Medical History: Denies: Asthma, Bronchitis, Chronic Obstructive Pulmonary Disease (COPD), Pneumonia, Tuberculosis Neurological Medical History: Denies: Seizures Endocrine Medical History: Reports: Diabetes Mellitus Type 2, Obesity Denies: Diabetes Mellitus Type 1, Hyperthyroidism, Hypothyroidism Renal/ Medical History: Denies: Chronic Kidney Disease, Nephrolithiasis Malignancy Medical History: Reports: Breast Cancer, Other - 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 GI Medical History: Reports: Gastroesophageal Reflux Disease, Hiatal Hernia Denies: Diverticulitis, Hepatitis, Peptic Ulcer Disease Musculoskeltal Medical History: Reports: Arthritis - legs Denies: Gout Skin Medical History: Denies: Eczema, Psoriasis Psychiatric Medical History: Denies: Alcohol Dependency, Dementia, Depression, General Anxiety Disorder, Substance Abuse, Tobacco Dependency Traumatic Medical History: Reports: None Hematology: Denies: Anemia, Hemophilia, Bleeding Tendencies Infectious Medical History: Reports: None Past Surgical History Past Surgical History: Reports: Appendectomy, Hysterectomy, Vascular Surgery - Recently had a left femoral artery stent placed, Other - 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 Denies: Amputation, Pacemaker Social History Smoking Status: Former Smoker Frequency of Alcohol Use: None Hx Recreational Drug Use: No Drugs: None Hx Prescription Drug Abuse: No - Advance Directive Resuscitation Status: Full Code Family History Family History: Arthritis, DM, Hypertension, Malignancy Parental Family History Reviewed: Yes Children Family History Reviewed: Yes Sibling(s) Family History Reviewed.: Yes Medication/Allergy Home Medications: Alendronate Sodium [Fosamax 70 mg Tablet] 70 mg PO MO@1000 03/24/18 Amlodipine Besylate [Norvasc 10 mg Tablet] 10 mg PO DAILY 03/24/18 Atenolol [Tenormin 100 mg Tablet] 100 mg PO DAILY 03/24/18 Clopidogrel Bisulfate [Plavix 75 mg Tablet] 75 mg PO DAILY 03/24/18 Docusate Sodium [Colace 100 mg Capsule] 100 mg PO BID 03/24/18 Ergocalciferol (Vitamin D2) [Vitamin D2] 50,000 unit PO AGUIAR@1000 03/24/18 Fenofibrate Nanocrystallized [Tricor 145 mg Tablet] 145 mg PO DAILY 03/24/18 Hydrochlorothiazide [Hydrodiuril 50 mg Tablet] 50 mg PO DAILY 03/24/18 Letrozole [Femara 2.5 Mg Tablet] 2.5 mg PO DAILY 03/24/18 Ramipril [Altace 10 mg Capsule] 20 mg PO DAILY 03/24/18 Ranitidine HCl [Zantac 150 mg Tablet] 150 mg PO BID 03/24/18 Rosuvastatin Calcium [Crestor 10 mg Tablet] 10 mg PO DAILY 03/24/18 Sertraline HCl [Zoloft] 25 mg PO DAILY 03/24/18 Allergies/Adverse Reactions: cephalexin monohydrate [From Keflex] Allergy (Verified 03/24/18 07:41) RASH, ITCHING Review of Systems Constitutional: PRESENT: fatigue, other - Malaise. ABSENT: chills, fever(s) Eyes: ABSENT: visual disturbances, other - Ocular pain Ears: ABSENT: hearing changes, other - Ear pain Nose, Mouth, and Throat: ABSENT: headache(s), mouth pain, sore throat, vertigo Cardiovascular: ABSENT: chest pain, dyspnea on exertion, edema, palpitations Respiratory: ABSENT: cough, dyspnea Gastrointestinal: PRESENT: nausea. ABSENT: abdominal pain, constipation, diarrhea, dysphagia, vomiting Genitourinary: ABSENT: dysuria, hematuria Musculoskeletal: PRESENT: joint swelling - With arthritis, other - Joint pain with arthritis Integumentary: ABSENT: pruritus, rash Neurological: ABSENT: abnormal gait, abnormal movements, abnormal speech, confusion, convulsions, dizziness, focal weakness, frequent falls, memory loss, numbness, paresthesias, restless legs, syncope, tremor(s), vertigo, weakness Psychiatric: ABSENT: anxiety, depression Endocrine: ABSENT: cold intolerance, heat intolerance, polydipsia, polyphagia, polyuria - 90698 Hematologic/Lymphatic: ABSENT: easy bleeding, easy bruising Allergic/Immunologic: PRESENT: other - Insect bite allergy. ABSENT: seasonal rhinorrhea Physical Exam Vital Signs: Temp Pulse Resp BP Pulse Ox 97.8 F 54 L 14 151/44 H 99 03/24/18 11:29 03/24/18 11:29 03/24/18 11:29 03/24/18 11:29 03/24/18 11:29 Intake & Output 03/22/18 03/23/18 03/24/18 23:59 23:59 23:59 Intake Total 355 Balance 355 General appearance: PRESENT: no acute distress, cooperative, obese Head exam: PRESENT: atraumatic, normocephalic Eye exam: PRESENT: conjunctiva pink, EOMI. ABSENT: conjunctival injection, nystagmus, periorbital swelling, scleral icterus Ear exam: PRESENT: normal external ear exam. ABSENT: bleeding, drainage Mouth exam: PRESENT: moist, tongue midline Neck exam: ABSENT: thyromegaly, tracheal deviation Respiratory exam: PRESENT: clear to auscultation mamadou, symmetrical, unlabored Cardiovascular exam: PRESENT: RRR. ABSENT: clicks, diastolic murmur, gallop, rubs, systolic murmur Pulses: PRESENT: normal carotid pulses, normal radial pulses, normal femoral pulses, normal dorsalis pedis pul Vascular exam: PRESENT: normal capillary refill. ABSENT: pallor GI/Abdominal exam: PRESENT: normal bowel sounds, soft. ABSENT: distended, tenderness Rectal exam: PRESENT: deferred - [id number] Extremities exam: PRESENT: other - Mild to moderate osteoarthritic changes noted multiple joints in the bilateral upper and lower extremities.. ABSENT: clubbing, joint swelling, pedal edema, tenderness Musculoskeletal exam: PRESENT: ambulatory. ABSENT: deformity, dislocation, tenderness Neurological exam: PRESENT: alert, awake, oriented to person, oriented to place , oriented to time, oriented to situation, CN II-XII grossly intact. ABSENT: motor sensory deficit Psychiatric exam: PRESENT: appropriate affect, normal mood Skin exam: ABSENT: jaundice, rash, urticaria Results Laboratory Results: Metabolic profile showed a sodium of 121.7 BUN of 21 glucose of 54 and AST of 42 CBC showed a white blood count of 11,600 and hemoglobin of 15.7 urinalysis showed a urine glucose of greater than 500 and a positive nitrite. EKG Comments: EKG was interpreted by me and shows a sinus bradycardia with a rate of 55 and nonspecific T wave changes. Assessment & Plan - Diagnosis (1) Hyponatremia Is this a current diagnosis for this admission?: Yes Plan: Patient will be treated with IV normal saline to slowly correct her hyponatremia. Daily BMP values will be followed to determine the efficacy of therapy. (2) Diabetes mellitus type 2 in obese Is this a current diagnosis for this admission?: Yes Plan: She is not currently on insulin or any type of oral diabetic therapy. I will therefore continue her only on a diabetic diet utilizing a carb 3 model. I will check her hemoglobin A1c for further evaluation and will follow daily blood sugar values with further evaluation and treatment as appropriate. (3) Hypertension Qualifiers: Hypertension type: essential hypertension Qualified Code(s): I10 - Essential (primary) hypertension Is this a current diagnosis for this admission?: Yes Plan: Patient will be continued on her current antihypertensive regiment with the exception of her hydrochlorothiazide 50 mg daily which will be held for now and most probably replaced by a lower dose or other agent in the patient's antihypertensive regimen at the time of discharge. Blood pressure goal less than 150/90. (4) PVD (peripheral vascular disease) Is this a current diagnosis for this admission?: Yes Plan: She will be continued on her medications for lipid control with the exception of fenofibrate which is of dubious value in treating any form of hyperlipidemia or hypertriglyceridemia, elimination of her hydrochlorothiazide may also help to reduce her overall lipid profile. I will order a lipid profile evaluation for the morning as a current baseline. Additionally we will continue to address her hypertension and maintain good control as this is essential to treating her peripheral vascular disease. (5) Breast cancer Qualifiers: Breast location: unspecified site of breast Estrogen receptor status: positive Patient sex: female Laterality: left Qualified Code(s): C50.912 - Malignant neoplasm of unspecified site of left female breast; Z17.0 - Estrogen receptor positive status [ER+]; Z17.0 - Estrogen receptor positive status [ER+] Is this a current diagnosis for this admission?: Yes Plan: Patient will be continued on her letrozole 2.5 mg p.o. daily during her hospital course and thereafter. - Time Time Spent: Greater than 70 Minutes Anticipated discharge: Home, Other - dining services director consult to determine possible home treatment needs after discharge. PT OT and speech therapy are also consulted for one-time evaluations
[2018-03-24] MEDS ORDERED: ERGOCALCIFEROL (VITAMIN D2) 50000 UNIT (1.25 MG) CAPSULE PO SCH (17:00)
--- NOTE | 2018-03-24 19:10 | EKG REPORT ---
SEVERITY:- ABNORMAL ECG - SINUS RHYTHM NONSPECIFIC T ABNORMALITIES, ANT-LAT LEADS : Confirmed by: Darius Pagan 24-Mar-2018 19:08:57
[2018-03-25] MEDS: NYSTATIN CREAM 15 GM TP SCH ×4 (05:44→23:47)
[2018-03-25 06:07] LABS: ABSOLUTE LYMPHOCYTES (AUTO) 0.7 10^3/uL (0.5-4.7); ABSOLUTE MONOCYTES (AUTO) 0.8 10^3/uL (0.1-1.4); ABSOLUTE NEUT (AUTO) 6.8 10^3/uL (1.7-8.2); BASOPHILS % (AUTO) 0.2 % (0-2); EOSINOPHILS % (AUTO) 0.5 % (0-6); HEMATOCRIT 36.5 % (36.0-47.0); LYMPHOCYTES % (AUTO) 8.2 % (13-45); MEAN CORPUSCULAR HEMOGLOBIN 29.8 pg (27.0-33.4); MEAN CORPUSCULAR HGB CONC 36.3 g/dL (32.0-36.0); MEAN CORPUSCULAR VOLUME 82 fl (80-97); PLATELET COUNT 202 10^3/uL (150-450); RED BLOOD COUNT 4.44 10^6/uL (3.72-5.28); RED CELL DISTRIBUTION WIDTH 12.5 % (11.5-14.0); SEGMENTED NEUTROPHILS % (AUTO) 81.1 % (42-78); TOTAL CELLS COUNTED % (AUTO) 100 %; WHITE BLOOD COUNT 8.4 10^3/uL (4.0-10.5)
[2018-03-25 06:16] LABS: HEMOGLOBIN 13.2 g/dL (12.0-15.5)
[2018-03-25 06:26] LABS: ANION GAP 9 (5-19); BLOOD UREA NITROGEN 16 mg/dL (7-20); CALCIUM 8.2 mg/dL (8.4-10.2); CARBON DIOXIDE 25 mmol/L (22-30); CHLORIDE 92 mmol/L (98-107); CHOLESTEROL 89.83 mg/dL (0-200); GLUCOSE 75 mg/dL (75-110); POTASSIUM 3.6 mmol/L (3.6-5.0); TRIGLYCERIDES 119 mg/dL (<150)
[2018-03-25 06:38] LABS: DIRECT LDL < 30 mg/dL (<100)
[2018-03-25] MEDS: POLYETHYLENE GLYCOL 3350 POWDER 17 GM/1 PACKET PO SCH (09:04)
[2018-03-25] MEDS: DOCUSATE SODIUM 100 MG CAPSULE PO SCH ×2 (09:05→17:08)
[2018-03-25] MEDS: ENOXAPARIN SODIUM INJ 30 MG/0.3 ML DISP.SYRIN SUBCUT SCH (09:33)
[2018-03-25] MEDS: CLOPIDOGREL BISULFATE 75 MG TABLET PO SCH (09:35)
[2018-03-25] MEDS: AMLODIPINE BESYLATE 10 MG TABLET PO SCH (09:35)
[2018-03-25] MEDS: TORSEMIDE 20 MG TABLET PO SCH (09:35)
[2018-03-25] MEDS: ATENOLOL 50 MG TABLET PO SCH (09:36)
[2018-03-25] MEDS: RAMIPRIL 10 MG CAPSULE PO SCH (09:37)
[2018-03-25] MEDS: FAMOTIDINE 20 MG TABLET PO SCH ×2 (09:37→21:21)
[2018-03-25] MEDS: SERTRALINE HCL 50 MG TABLET PO SCH (09:37)
[2018-03-25] MEDS: LETROZOLE 2.5 MG TABLET PO SCH (09:37)
[2018-03-25] MEDS: NORMAL SALINE 1000 ML 1,000 ML IV PRN ×2 (09:49→20:38)
[2018-03-25] MEDS ORDERED: ATORVASTATIN CALCIUM 20 MG TABLET PO SCH (10:00)
[2018-03-25] MEDS ORDERED: (PENDING PHARMACY ID) (Sertraline Hcl [Zoloft] 25 MG) PO SCH (10:00)
[2018-03-25] MEDS ORDERED: (PENDING PHARMACY ID) (Atenolol [Tenormin 100 Mg Tablet] 100 MG) PO SCH (10:00)
--- NOTE | 2018-03-25 13:20 | PDOC PROGRESS REPORT ---
Subjective Progress Note for:: 03/25/18 Subjective:: SONIA HOPE I is a 87 year old female who presented to the emergency room with a 2 week history of malaise. She describes her malaise as a generalized achiness and fatigue with overall feeling of unwellness which has been gradually increasing in intensity over the last 2 weeks. She describes her present sensation of malaise as severe but admits that her symptoms have waxed and waned in relative intensity without regard to the time of day or night or the activity in which she might be engaged. Her malaise has been accompanied by nausea without vomiting and a significant decrease in appetite accompanied by a significant decrease in oral fluid intake. She has a history of diabetes mellitus type 2, essential hypertension and atherosclerotic peripheral vascular disease. She has not noted any particular symptoms related to hypoglycemia but she was found to have a blood sugar of 52 when it was checked by the EMS and she was given oral glucose. She did not feel that this made a significant difference in her overall feeling of well-being but it did raise her blood sugar to 348. She denies prior similar episodes and has not identified any aggravating or ameliorating factors for her malaise. She denies diarrhea, constipation, dyspnea, cough, chest pain, palpitations, fever, chills, headache , sore throat, rash, dysphagia, dysuria, hematuria, focal weakness, paresthesias , urinary and fecal incontinence. In the emergency room she was found to have a serum sodium of 121.7 with an otherwise unremarkable evaluation. She was treated with IV lactated Ringer's and was subsequently admitted to the hospitalist service for further treatment. 03/25/18: Sonia was started on normal saline IV at 125 mL an hour after her arrival to the medical floor. Her regular antihypertensive regimen and other medications were continued with the exception of hydrochlorothiazide 50 mg once daily. Hydrochlorothiazide will be discontinued and patient will be started on torsemide 10 mg p.o. daily in its place. Her serum sodium today has improved to 126 and her CBC has essentially normalized. Her lipid profile was noted to be normal and her hemoglobin A1c was 5.9. Appropriate adjustments will need to be made in the patient's hyperlipidemia therapy (discontinue fenofibrate and reduce atorvastatin to 10 mg daily while she is in the hospital and when she is discharged her Crestor should be reduced to 5 mg p.o. daily) and she will need to have the diagnosis of diabetes mellitus type 2 removed from her diagnostic list. She feels substantially better today with significantly less fatigue and malaise and a feeling of greater strength. She is still significantly deconditioned and requires substantial assistance to get out of bed to go to the bathroom or use a bedside commode. This is been discussed by myself with she and her friend as well as remotely with her daughter and we have agreed that she will need to have a period of time in a halfway facility for rehabilitation after her hospitalization. To this end she and her daughter selected [facility] as there halfway facility of choice the proposal was made to [facility] and the bed has been offered and is available as of 03/27/2018. The patient and her daughter were not yet ready to discuss advanced care planning in terms of a DNR or establishing her 5 wishes. On examination she is noted to be considerably more mobile in bed than she was yesterday and she does have more motor strength by comparison. Sonia's electrolytes will be rechecked tomorrow and hopefully she will be able to discontinue IV fluids at that time to allow her greater activity. Physical therapy, occupational therapy and speech therapy will be consulted to see the patient 1 time to evaluate for possible intervention to improve the patient's deconditioned status. I reviewed the patient's medical records for the last 5 years finding that she has long-standing hypertension with evidence of cortical thickening on her renal ultrasound and a chest x-ray which was interpreted is having a normal cardiac size however to my interpretation the cardiac size was mildly increased representing a mild cardiomegaly in 2013. 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 A 2 view chest x-ray will also be obtained and a TB skin test will be applied. Reason For Visit: HYPONATREMIA Physical Exam Vital Signs: Temp Pulse Resp BP Pulse Ox 98.0 F 55 L 18 138/39 H 99 03/25/18 12:16 03/25/18 12:16 03/25/18 12:16 03/25/18 12:16 03/25/18 12:16 Intake & Output 03/23/18 03/24/18 03/25/18 23:59 23:59 23:59 Intake Total 1527 1320 Balance 1527 1320 Weight 84.3 kg General appearance: PRESENT: no acute distress, cooperative, obese Head exam: PRESENT: atraumatic, normocephalic Eye exam: PRESENT: EOMI. ABSENT: periorbital swelling, scleral icterus Ear exam: PRESENT: normal external ear exam. ABSENT: drainage Mouth exam: PRESENT: moist, neck supple Neck exam: ABSENT: thyromegaly, tracheal deviation Respiratory exam: PRESENT: clear to auscultation mamadou, symmetrical, unlabored Cardiovascular exam: PRESENT: RRR. ABSENT: clicks, diastolic murmur, gallop, rubs, systolic murmur Vascular exam: PRESENT: normal capillary refill. ABSENT: pallor GI/Abdominal exam: PRESENT: normal bowel sounds, soft Rectal exam: PRESENT: deferred Extremities exam: ABSENT: joint swelling, pedal edema Musculoskeletal exam: ABSENT: deformity, dislocation Neurological exam: PRESENT: alert, awake, oriented to person, oriented to place , oriented to time, oriented to situation, CN II-XII grossly intact. ABSENT: motor sensory deficit Psychiatric exam: PRESENT: appropriate affect, normal mood Skin exam: ABSENT: jaundice, rash, urticaria Results Laboratory Results: 03/25/18 05:17 03/25/18 05:17 03/25/18 03/25/18 05:17 05:17 WBC 8.4 RBC 4.44 Hgb 13.2 D Hct 36.5 MCV 82 MCH 29.8 MCHC 36.3 H RDW 12.5 Plt Count 202 Seg Neutrophils % 81.1 H Lymphocytes % 8.2 L Monocytes % 10.0 Eosinophils % 0.5 Basophils % 0.2 Absolute Neutrophils 6.8 Absolute Lymphocytes 0.7 Absolute Monocytes 0.8 Absolute Eosinophils 0.0 Absolute Basophils 0.0 Sodium 126.0 L Potassium 3.6 Chloride 92 L Carbon Dioxide 25 Anion Gap 9 BUN 16 Creatinine 0.95 Est GFR ( Amer) > 60 Est GFR (Non-Af Amer) 56 L Glucose 75 Calcium 8.2 L Magnesium 1.4 L Triglycerides 119 Cholesterol 89.83 LDL Cholesterol Direct < 30 VLDL Cholesterol 24.0 HDL Cholesterol 44 Assessment & Plan - Diagnosis (1) Hyponatremia Is this a current diagnosis for this admission?: Yes Plan: Patient will be treated with IV normal saline to slowly correct her hyponatremia. Daily BMP values will be followed to determine the efficacy of therapy. 03/25/18: The patient is showing significant improvement with recovery of her appetite and more clear mentation and less feeling of malaise and fatigue. She is still fairly weak for activities and will probably need to be in rehab at a halfway facility for 2 or 3 weeks after her discharge time here. Plans for a bed at [facility] per the patient's request have been confirmed and the patient will be able to be discharged on 03/27/2018 after completing her third midnight of hospital stay. (2) Diabetes mellitus type 2 in obese Is this a current diagnosis for this admission?: Yes Plan: She is not currently on insulin or any type of oral diabetic therapy. I will therefore continue her only on a diabetic diet utilizing a carb 3 model. I will check her hemoglobin A1c for further evaluation and will follow daily blood sugar values with further evaluation and treatment as appropriate. 03/25/18: Patient's hemoglobin A1c is 5.9 with no therapy. This patient obviously does not have diabetes mellitus type 2 and this diagnosis will be omitted from my diagnosis list after today. (3) Hypertension Qualifiers: Hypertension type: essential hypertension Qualified Code(s): I10 - Essential (primary) hypertension Is this a current diagnosis for this admission?: Yes Plan: Patient will be continued on her current antihypertensive regiment with the exception of her hydrochlorothiazide 50 mg daily which will be held for now and most probably replaced by a lower dose or other agent in the patient's antihypertensive regimen at the time of discharge. Blood pressure goal less than 150/90. 03/25/18: Patient is tolerating her current therapeutic regiment well with good control of her blood pressure. Her prior antihypertensive regimen has been continued with the exception of discontinuation of hydrochlorothiazide and adding low-dose torsemide once daily (10 mg). Unless her substantial change in her vital signs from this point on I would plan to discharge her on the current medical regiment including the daily torsemide dosing. (4) PVD (peripheral vascular disease) Is this a current diagnosis for this admission?: Yes Plan: She will be continued on her medications for lipid control with the exception of fenofibrate which is of dubious value in treating any form of hyperlipidemia or hypertriglyceridemia, elimination of her hydrochlorothiazide may also help to reduce her overall lipid profile. I will order a lipid profile evaluation for the morning as a current baseline. Additionally we will continue to address her hypertension and maintain good control as this is essential to treating her peripheral vascular disease. 03/25/18: The patient's lipid profile would suggest that therapy is adequate or possibly even a little too aggressive. I will plan to leave her off of the fenofibrate and reduce her Lipitor to 10 mg p.o. daily. Given her age aggressive therapy seems to be more fraught with risk than benefit. It is slightly less aggressive dose of statin would likely result in the same degree of control with less overall risk. This will need to be followed up on a longer term basis with her primary care provider in the future. (5) Breast cancer Qualifiers: Breast location: unspecified site of breast Estrogen receptor status: positive Patient sex: female Laterality: left Qualified Code(s): C50.912 - Malignant neoplasm of unspecified site of left female breast; Z17.0 - Estrogen receptor positive status [ER+]; Z17.0 - Estrogen receptor positive status [ER+] Is this a current diagnosis for this admission?: Yes Plan: Patient will be continued on her letrozole 2.5 mg p.o. daily during her hospital course and thereafter. - Time Time Spent with patient: 35 or more minutes Medications reviewed and adjusted accordingly: Yes Anticipated discharge: SNF - Bed confirmed at [facility] for 03/27/2018 Within: within 48 hours, when bed available
[2018-03-25] MEDS ORDERED: [UNRECOGNIZED DRUG - OTHER] ID ONE (13:24)
[2018-03-25] MEDS ORDERED: ONDANSETRON 4 MG TAB.RAPDIS PO PRN (14:00)
[2018-03-25] MEDS ORDERED: TUBERCULIN,PURIF.PROT.DERIV. 5 TU/0.1 ML TEST 1 ML VIAL ID ONE (15:00)
--- NOTE | 2018-03-25 15:54 | RADIOLOGY REPORT (SQ) ---
EXAM DESCRIPTION: CHEST 2 VIEWS COMPLETED DATE/TIME: 03/25/2018 3:44 pm REASON FOR STUDY: HTN, PVD, Weakness COMPARISON: AP chest 02/24/2018 EXAM PARAMETERS: NUMBER OF VIEWS: two views TECHNIQUE: Digital Frontal and Lateral radiographic views of the chest acquired. RADIATION DOSE: NA LIMITATIONS: none FINDINGS: LUNGS AND PLEURA: No opacities, masses or pneumothorax. No pleural effusion. MEDIASTINUM AND HILAR STRUCTURES: No masses or contour abnormalities. HEART AND VASCULAR STRUCTURES: Stable mild cardiomegaly BONES: No acute findings. HARDWARE: None in the chest. OTHER: No other significant finding. IMPRESSION: NO ACUTE RADIOGRAPHIC FINDING IN THE CHEST. TECHNICAL DOCUMENTATION: JOB ID: [id number] [employer]- All Rights Reserved Reading location - IP/workstation name: [email or web address]
[2018-03-25] MEDS: ATORVASTATIN CALCIUM 10 MG TABLET PO SCH (21:21)
[2018-03-26 04:45] LABS: ABSOLUTE EOSINOPHILS # (AUTO) 0.1 10^3/uL (0.0-0.6); ABSOLUTE LYMPHOCYTES (AUTO) 0.8 10^3/uL (0.5-4.7); ABSOLUTE MONOCYTES (AUTO) 0.8 10^3/uL (0.1-1.4); ABSOLUTE NEUT (AUTO) 5.4 10^3/uL (1.7-8.2); BASOPHILS % (AUTO) 0.4 % (0-2); EOSINOPHILS % (AUTO) 1.5 % (0-6); HEMATOCRIT 33.7 % (36.0-47.0); HEMOGLOBIN 12.1 g/dL (12.0-15.5); LYMPHOCYTES % (AUTO) 11.4 % (13-45); MEAN CORPUSCULAR HEMOGLOBIN 29.8 pg (27.0-33.4); MEAN CORPUSCULAR VOLUME 83 fl (80-97); MONOCYTES % (AUTO) 11.7 % (3-13); PLATELET COUNT 187 10^3/uL (150-450); RED BLOOD COUNT 4.07 10^6/uL (3.72-5.28); RED CELL DISTRIBUTION WIDTH 12.6 % (11.5-14.0); TOTAL CELLS COUNTED % (AUTO) 100 %; WHITE BLOOD COUNT 7.2 10^3/uL (4.0-10.5)
[2018-03-26] MEDS: NORMAL SALINE 1000 ML 1,000 ML IV PRN (04:59)
[2018-03-26] MEDS: NYSTATIN CREAM 15 GM TP SCH ×3 (05:00→17:11)
[2018-03-26 05:02] LABS: ANION GAP 6 (5-19); BLOOD UREA NITROGEN 20 mg/dL (7-20); CALCIUM 8.2 mg/dL (8.4-10.2); CARBON DIOXIDE 26 mmol/L (22-30); CHLORIDE 100 mmol/L (98-107); GLUCOSE 83 mg/dL (75-110); POTASSIUM 3.2 mmol/L (3.6-5.0); SODIUM 132.1 mmol/L (137-145)
[2018-03-26] MEDS: DOCUSATE SODIUM 100 MG CAPSULE PO SCH ×2 (10:00→17:13)
[2018-03-26] MEDS: POLYETHYLENE GLYCOL 3350 POWDER 17 GM/1 PACKET PO SCH (10:00)
[2018-03-26] MEDS: RAMIPRIL 10 MG CAPSULE PO SCH (10:09)
[2018-03-26] MEDS: TORSEMIDE 20 MG TABLET PO SCH (10:09)
[2018-03-26] MEDS: ENOXAPARIN SODIUM INJ 30 MG/0.3 ML DISP.SYRIN SUBCUT SCH (10:10)
[2018-03-26] MEDS: AMLODIPINE BESYLATE 10 MG TABLET PO SCH (10:10)
[2018-03-26] MEDS: LETROZOLE 2.5 MG TABLET PO SCH (10:10)
[2018-03-26] MEDS: FAMOTIDINE 20 MG TABLET PO SCH ×2 (10:10→21:34)
[2018-03-26] MEDS: SERTRALINE HCL 50 MG TABLET PO SCH (10:11)
[2018-03-26] MEDS: CLOPIDOGREL BISULFATE 75 MG TABLET PO SCH (10:11)
[2018-03-26] MEDS: ATENOLOL 50 MG TABLET PO SCH (10:11)
--- NOTE | 2018-03-26 10:31 | XCELERA REPORT ---
[address] [address] Transthoracic Echocardiogram Report Name: AME HOPE I Age: 87 yrs Gender: Female : 1930 Patient Status: In[facility] Study Date: 03/25/2018 01:50 PM Height: 58 in Weight: 185 lb BSA: 1.8 m2 Procedure: A complete two-dimensional transthoracic echocardiogram was performed (2D, M-mode, spectral and color flow Doppler). The study was technically adequate with some images being suboptimal in quality. Reason For Study: Hypertension, PVD, weakness Ordering Physician: BRITTON EDEN Performed By: Adolph Mena Interpretation Summary The left ventricular ejection fraction is normal. Doppler measurements suggest pseudonormalized left ventricular relaxation, which is associated with grade II/IV or mild to moderate diastolic dysfunction There is mild concentric left ventricular hypertrophy. The left ventricle is grossly normal size. Wall motion cannot be accurately commented on, but no definite regional wall motion abnormalities noted. The right ventricular systolic function is normal. The left atrial size is normal. The right atrium is normal in size There is a mild amount of mitral regurgitation There is no mitral valve stenosis. There is no aortic valve stenosis No aortic regurgitation is present. There is a trace or physiologic amount of tricuspid regurgitation Tricuspid regurgitation jet envelope not well defined to measure RV systolic pressure accurately. The aortic root is not well visualized but is probably normal size. The inferior vena cava appeared normal and decreased > 50% with respiration (RAP 5-10 mmHg) There is no pericardial effusion. MMode/2D Measurements & Calculations RVDd: 2.6 cm LVIDd: 4.8 cm FS: 36.6 % Ao root diam: 2.4 cm IVSd: 0.87 cm LVIDs: 3.1 cm EDV(Teich): 108.6 ml Ao root area: 4.7 cm2 LVPWd: 0.85 cm ESV(Teich): 36.6 ml LA dimension: 3.6 cm EF(Teich): 66.3 % Doppler Measurements & Calculations MV E max flo: MV P1/2t max flo: Ao V2 max: LV V1 max P.6 cm/sec 95.3 cm/sec 193.4 cm/sec 10.3 mmHg MV A max flo: MV P1/2t: 110.7 msec Ao max PG: LV V1 max: 120.8 cm/sec MVA(P1/2t): 2.0 cm2 15.0 mmHg 160.7 cm/sec MV E/A: 0.72 MV dec slope: 252.2 cm/sec2 MV dec time: 0.31 sec PA V2 max: PI end-d flo: MV P1/2t-pr_phl: 121.4 cm/sec 117.0 cm/sec 110.7 msec PA max P.9 mmHg Left Ventricle The left ventricle is grossly normal size. There is mild concentric left ventricular hypertrophy. The left ventricular ejection fraction is normal. Doppler measurements suggest pseudonormalized left ventricular relaxation, which is associated with grade II/IV or mild to moderate diastolic dysfunction. Wall motion cannot be accurately commented on, but no definite regional wall motion abnormalities noted. Right Ventricle The right ventricle is grossly normal size. There is normal right ventricular wall thickness. The right ventricular systolic function is normal. Atria The right atrium is normal in size. The left atrial size is normal. Interarterial septum not well visualized and not well dopplered. Cannot comment on ASD/PFO presence. Mitral Valve The mitral valve leaflets are sclerotic, but show no functional abnormalities. There is no mitral valve stenosis. There is a mild amount of mitral regurgitation. Aortic Valve The aortic valve is grossly normal. There is no aortic valve stenosis. No aortic regurgitation is present. Tricuspid Valve The tricuspid valve is not well visualized, but is grossly normal. There is no tricuspid stenosis. There is a trace or physiologic amount of tricuspid regurgitation. Tricuspid regurgitation jet envelope not well defined to measure RV systolic pressure accurately. Pulmonic Valve The pulmonic valve is not well visualized. Great Vessels The aortic root is not well visualized but is probably normal size. The inferior vena cava appeared normal and decreased > 50% with respiration (RAP 5-10 mmHg). Effusions There is no pericardial effusion. : BRITTON EDEN > Darius Pagan
--- NOTE | 2018-03-26 10:38 | PDOC PROGRESS REPORT ---
Subjective Progress Note for:: 03/26/18 Subjective:: 87-year-old white female admitted with a sodium of 121. Hydrochlorothiazide suspected as the cause has been discontinued she is received IV replacement sodium is 132 today. She is still somewhat foggy as she claims but her sensorium is much clearer than she described yesterday. Hemoglobin A1c was 5.9. Patient has no new complaints Reason For Visit: HYPONATREMIA Physical Exam Vital Signs: Temp Pulse Resp BP Pulse Ox 98.8 F 53 L 14 161/42 H 98 03/26/18 07:18 03/26/18 07:18 03/26/18 07:18 03/26/18 07:18 03/26/18 07:18 Intake & Output 03/25/18 03/26/18 03/27/18 06:59 06:59 06:59 Intake Total 2847 3025 Output Total 400 Balance 2847 2625 Weight 84.3 kg 83.3 kg General appearance: PRESENT: no acute distress, well-developed, well-nourished Eye exam: PRESENT: conjunctiva pink, EOMI, PERRLA. ABSENT: scleral icterus Neck exam: ABSENT: carotid bruit, JVD, lymphadenopathy, thyromegaly Respiratory exam: PRESENT: clear to auscultation mamadou. ABSENT: rales, rhonchi, wheezes Cardiovascular exam: PRESENT: RRR. ABSENT: diastolic murmur, rubs, systolic murmur GI/Abdominal exam: PRESENT: normal bowel sounds, soft. ABSENT: distended, guarding, mass, organolmegaly, rebound, tenderness Extremities exam: PRESENT: full ROM. ABSENT: calf tenderness, clubbing, pedal edema Neurological exam: PRESENT: alert, awake, oriented to person, oriented to place , oriented to time, oriented to situation, abnormal gait, CN II-XII grossly intact. ABSENT: motor sensory deficit Results Laboratory Results: 03/26/18 04:02 03/26/18 04:02 03/26/18 03/26/18 04:02 04:02 WBC 7.2 RBC 4.07 Hgb 12.1 Hct 33.7 L MCV 83 MCH 29.8 MCHC 36.0 RDW 12.6 Plt Count 187 Seg Neutrophils % 75.0 Lymphocytes % 11.4 L Monocytes % 11.7 Eosinophils % 1.5 Basophils % 0.4 Absolute Neutrophils 5.4 Absolute Lymphocytes 0.8 Absolute Monocytes 0.8 Absolute Eosinophils 0.1 Absolute Basophils 0.0 Sodium 132.1 L Potassium 3.2 L Chloride 100 Carbon Dioxide 26 Anion Gap 6 BUN 20 Creatinine 0.92 Est GFR ( Amer) > 60 Est GFR (Non-Af Amer) 58 L Glucose 83 Calcium 8.2 L Magnesium 1.5 L Impressions: Chest X-Ray 03/25/18 00:00 IMPRESSION: NO ACUTE RADIOGRAPHIC FINDING IN THE CHEST. Assessment & Plan - Diagnosis (1) Hyponatremia Is this a current diagnosis for this admission?: Yes Plan: Sodium 132 patient to remain off hydrochlorothiazide discontinue saline infusion. Patient has debility likely from prolonged hyponatremia will continue physical therapy plan for patient to be transferred to [place] for SNF rehab prior to returning home. Anticipate discharge tomorrow (2) CAD (coronary artery disease) Is this a current diagnosis for this admission?: Yes Plan: Continue outpatient medications unchanged hydrochlorothiazide has been discontinued (3) Hypertension Qualifiers: Hypertension type: essential hypertension Qualified Code(s): I10 - Essential (primary) hypertension Is this a current diagnosis for this admission?: Yes Plan: Mild systolic hypertension we will discontinue IV monitor sodium going forward. (4) PVD (peripheral vascular disease) Is this a current diagnosis for this admission?: Yes Plan: Cholesterol at goal continue Crestor on discharge (5) Breast cancer Qualifiers: Breast location: unspecified site of breast Estrogen receptor status: positive Patient sex: female Laterality: left Qualified Code(s): C50.912 - Malignant neoplasm of unspecified site of left female breast; Z17.0 - Estrogen receptor positive status [ER+]; Z17.0 - Estrogen receptor positive status [ER+] Is this a current diagnosis for this admission?: Yes Plan: Status post lumpectomy October 2016 continue outpatient oral agents. Letrozole 2.5 mg daily - Time Time Spent with patient: 25-34 minutes Anticipated discharge: SNF Within: within 24 hours
[2018-03-26] MEDS: ATORVASTATIN CALCIUM 10 MG TABLET PO SCH (21:34)
[2018-03-26] MEDS ORDERED: ATORVASTATIN CALCIUM 20 MG TABLET PO SCH ×2 (22:00)
[2018-03-27] MEDS: NYSTATIN CREAM 15 GM TP SCH ×4 (00:40→17:38)
[2018-03-27 05:20] LABS: ABSOLUTE BASOPHILS # (AUTO) 0.1 10^3/uL (0.0-0.2); ABSOLUTE EOSINOPHILS # (AUTO) 0.2 10^3/uL (0.0-0.6); ABSOLUTE LYMPHOCYTES (AUTO) 0.9 10^3/uL (0.5-4.7); ABSOLUTE MONOCYTES (AUTO) 0.8 10^3/uL (0.1-1.4); ABSOLUTE NEUT (AUTO) 5.6 10^3/uL (1.7-8.2); BASOPHILS % (AUTO) 0.7 % (0-2); EOSINOPHILS % (AUTO) 2.9 % (0-6); HEMATOCRIT 33.4 % (36.0-47.0); HEMOGLOBIN 11.8 g/dL (12.0-15.5); LYMPHOCYTES % (AUTO) 11.9 % (13-45); MEAN CORPUSCULAR HEMOGLOBIN 29.7 pg (27.0-33.4); MEAN CORPUSCULAR HGB CONC 35.4 g/dL (32.0-36.0); MEAN CORPUSCULAR VOLUME 84 fl (80-97); MONOCYTES % (AUTO) 10.7 % (3-13); PLATELET COUNT 171 10^3/uL (150-450); RED BLOOD COUNT 3.99 10^6/uL (3.72-5.28); RED CELL DISTRIBUTION WIDTH 12.8 % (11.5-14.0); SEGMENTED NEUTROPHILS % (AUTO) 73.8 % (42-78); TOTAL CELLS COUNTED % (AUTO) 100 %; WHITE BLOOD COUNT 7.6 10^3/uL (4.0-10.5)
[2018-03-27 05:37] LABS: ANION GAP 8 (5-19); BLOOD UREA NITROGEN 23 mg/dL (7-20); CALCIUM 8.4 mg/dL (8.4-10.2); CARBON DIOXIDE 30 mmol/L (22-30); CHLORIDE 98 mmol/L (98-107); GLUCOSE 89 mg/dL (75-110); POTASSIUM 3.2 mmol/L (3.6-5.0); SODIUM 135.5 mmol/L (137-145)
[2018-03-27] MEDS ORDERED: MAGNESIUM SULFATE INJ 8 MEQ/2 ML IV ONE (08:06)
[2018-03-27] MEDS: ENOXAPARIN SODIUM INJ 30 MG/0.3 ML DISP.SYRIN SUBCUT SCH (09:17)
[2018-03-27] MEDS: MAGNESIUM SULFATE 1 GM/D5W 100 ML IV SCH ×2 (09:17→10:33)
[2018-03-27] MEDS: POLYETHYLENE GLYCOL 3350 POWDER 17 GM/1 PACKET PO SCH (09:17)
[2018-03-27] MEDS: FAMOTIDINE 20 MG TABLET PO SCH (09:18)
[2018-03-27] MEDS: CLOPIDOGREL BISULFATE 75 MG TABLET PO SCH (09:18)
[2018-03-27] MEDS: SERTRALINE HCL 50 MG TABLET PO SCH (09:18)
[2018-03-27] MEDS: DOCUSATE SODIUM 100 MG CAPSULE PO SCH ×2 (09:18→17:38)
[2018-03-27] MEDS: TORSEMIDE 20 MG TABLET PO SCH (09:22)
[2018-03-27] MEDS: AMLODIPINE BESYLATE 10 MG TABLET PO SCH (09:22)
[2018-03-27] MEDS ORDERED: MAGNESIUM OXIDE 400 MG TABLET PO SCH (10:00)
[2018-03-27] MEDS ORDERED: PHARMACY COMMUNICATION ORDER MC SCH (10:00)
--- NOTE | 2018-03-27 10:03 | PDOC TRANSFER SUMMARY ---
General - Admit/Disc Date/PCP Admission Date/Primary Care Provider: 03/24/18 09:20 DIPTI YOUNG PA-C Discharge Date: 03/27/18 - Discharge Diagnosis (1) Hyponatremia Is this a current diagnosis for this admission?: Yes Summary: Sodium 135 at the time of discharge. Hydrochlorothiazide discontinued now on furosemide for diuretic (2) CAD (coronary artery disease) Is this a current diagnosis for this admission?: Yes (3) Hypertension Is this a current diagnosis for this admission?: Yes (4) PVD (peripheral vascular disease) Is this a current diagnosis for this admission?: Yes (5) Breast cancer Is this a current diagnosis for this admission?: Yes (6) Hypomagnesemia Is this a current diagnosis for this admission?: Yes Summary: Given 2 g IV magnesium sulfate and started on p.o. supplementation. - Additional Information Resuscitation Status: Full Code Discharge Activity: Activity As Tolerated Home Medications: Alendronate Sodium [Fosamax 70 mg Tablet] 70 mg PO MO@1000 03/24/18 Amlodipine Besylate [Norvasc 10 mg Tablet] 10 mg PO DAILY 03/24/18 Atenolol [Tenormin 100 mg Tablet] 100 mg PO DAILY 03/24/18 Clopidogrel Bisulfate [Plavix 75 mg Tablet] 75 mg PO DAILY 03/24/18 Docusate Sodium [Colace 100 mg Capsule] 100 mg PO BID 03/24/18 Ergocalciferol (Vitamin D2) [Vitamin D2] 50,000 unit PO AGUIAR@1000 03/24/18 Fenofibrate Nanocrystallized [Tricor 145 mg Tablet] 145 mg PO DAILY 03/24/18 Letrozole [Femara 2.5 mg Tablet] 2.5 mg PO DAILY 03/24/18 Ramipril [Altace 10 mg Capsule] 20 mg PO DAILY 03/24/18 Ranitidine HCl [Zantac 150 mg Tablet] 150 mg PO BID 03/24/18 Sertraline HCl [Zoloft] 25 mg PO DAILY 03/24/18 Acetaminophen [Tylenol 325 mg Tablet] 650 mg PO Q4HP PRN tablet 03/27/18 Magnesium Oxide [Mag-Ox 400 mg Tablet] 400 mg PO DAILY tablet 03/27/18 Polyethylene Glycol 3350 [Miralax Powder 17 gm/Packet] 17 gm PO DAILY powd.pack 03/27/18 Rosuvastatin Calcium [Crestor 10 mg Tablet] 5 mg PO DAILY #0 03/27/18 Torsemide [Demadex 20 mg Tablet] 10 mg PO DAILY tablet 03/27/18 History of Present Illness Admission Date/PCP: 03/24/18 09:20 DIPTI YOUNG PA-C Patient complains of: Mental confusion and malaise secondary to hyponatremia History of Present Illness: AME HOPE I is a 87 year old female who presented to the emergency room with a 2 week history of malaise. She describes her malaise as a generalized achiness and fatigue with overall feeling of unwellness which has been gradually increasing in intensity over the last 2 weeks. Patient additionally had increased confusion and concentration ability. She describes her present sensation of malaise as severe but admits that her symptoms have waxed and waned in relative intensity without regard to the time of day or night or the activity in which she might be engaged. Her malaise has been accompanied by nausea without vomiting and a significant decrease in appetite accompanied by a significant decrease in oral fluid intake. Hospital Course Hospital Course: Patient was admitted to the medical floor her hydrochlorothiazide was discontinued. She was given a normal saline infusion which corrected her sodium from 121-126 to eventually 135 at the time of discharge. Her hyponatremia was felt to be directly related to the hydrochlorothiazide she was placed on furosemide as a diuretic the morning of discharge her sodium was 135. Her magnesium was low at 1.3 and she was given IV infusion of magnesium sulfate and started on p.o. Her other outpatient medications remained unchanged at the time of discharge. Because of her overall debility despite her improvement in her concentration and mental status she had difficulty ambulating physical therapy evaluated the patient. It was recommended that she go to a SNF for gait training and physical therapy before returning to home. Physical Exam Vital Signs: Temp Pulse Resp BP Pulse Ox 98.8 F 53 L 16 148/46 H 97 03/26/18 23:38 03/26/18 23:38 03/26/18 23:38 03/26/18 23:38 03/26/18 23:38 Intake & Output 03/26/18 03/27/18 03/28/18 06:59 06:59 06:59 Intake Total 3025 1725 Output Total 400 Balance 2625 1725 Weight 83.3 kg 81.5 kg General appearance: PRESENT: no acute distress, well-developed, well-nourished Eye exam: PRESENT: conjunctiva pink, EOMI, PERRLA. ABSENT: scleral icterus Neck exam: ABSENT: carotid bruit, JVD, lymphadenopathy, thyromegaly Respiratory exam: PRESENT: clear to auscultation mamadou. ABSENT: rales, rhonchi, wheezes Cardiovascular exam: PRESENT: RRR. ABSENT: diastolic murmur, rubs, systolic murmur Pulses: PRESENT: normal dorsalis pedis pul GI/Abdominal exam: PRESENT: normal bowel sounds, soft. ABSENT: distended, guarding, mass, organolmegaly, rebound, tenderness Extremities exam: PRESENT: full ROM. ABSENT: calf tenderness, clubbing, pedal edema Neurological exam: PRESENT: alert, awake, oriented to person, oriented to place , oriented to time, oriented to situation, CN II-XII grossly intact. ABSENT: motor sensory deficit Results Laboratory Results: 03/27/18 04:25 03/27/18 04:25 03/27/18 03/27/18 04:25 04:25 WBC 7.6 RBC 3.99 Hgb 11.8 L Hct 33.4 L MCV 84 MCH 29.7 MCHC 35.4 RDW 12.8 Plt Count 171 Seg Neutrophils % 73.8 Lymphocytes % 11.9 L Monocytes % 10.7 Eosinophils % 2.9 Basophils % 0.7 Absolute Neutrophils 5.6 Absolute Lymphocytes 0.9 Absolute Monocytes 0.8 Absolute Eosinophils 0.2 Absolute Basophils 0.1 Sodium 135.5 L Potassium 3.2 L Chloride 98 Carbon Dioxide 30 Anion Gap 8 BUN 23 H Creatinine 0.97 Est GFR ( Amer) > 60 Est GFR (Non-Af Amer) 54 L Glucose 89 Calcium 8.4 Magnesium 1.3 L Impressions: Chest X-Ray 03/25/18 00:00 IMPRESSION: NO ACUTE RADIOGRAPHIC FINDING IN THE CHEST. Qualifiers - * PATIENT BEING DISCHARGED WITH ANY OF THE FOLLOWING DIAGNOSIS: No Plan Time Spent: Greater than 30 Minutes
[2018-03-27] MEDS: LETROZOLE 2.5 MG TABLET PO SCH (10:33)
[2018-03-27] MEDS: RAMIPRIL 10 MG CAPSULE PO SCH (10:33)
[2018-03-27] MEDS: ATENOLOL 50 MG TABLET PO SCH (10:33)
[2018-03-27 18:32] VITALS: BP 138/48
== END 2018-03-27 21:13 | DRG 641 ==
LOC: ER 07:29 → EH 09:20 → 5 10:43
PROVIDERS: ADMIT Emergency Medicine; ATTEND Emergency Medicine
DX: E87.1 Hypo-osmolality and hyponatremia (principal); I25.10 Atherosclerotic heart disease of native coronary artery without angina pectoris; I10 Essential (primary) hypertension; C50.912 Malignant neoplasm of unspecified site of left female breast; E83.42 Hypomagnesemia; Z66 Do not resuscitate; E78.00 Pure hypercholesterolemia, unspecified; E11.51 Type 2 diabetes mellitus with diabetic peripheral angiopathy without gangrene; E66.9 Obesity, unspecified; Z68.37 Body mass index [BMI] 37.0-37.9, adult; K21.9 Gastro-esophageal reflux disease without esophagitis; M19.90 Unspecified osteoarthritis, unspecified site; Z17.0 Estrogen receptor positive status [ER+]; I25.2 Old myocardial infarction; Z79.899 Other long term (current) drug therapy; Z87.891 Personal history of nicotine dependence; Z90.710 Acquired absence of both cervix and uterus; Z88.1 Allergy status to other antibiotic agents; Z82.61 Family history of arthritis; Z83.3 Family history of diabetes mellitus; Z80.9 Family history of malignant neoplasm, unspecified; Z82.49 Family history of ischemic heart disease and other diseases of the circulatory system
CPT/HCPCS: 36415; 51701; 71046; 80048; 80053; 80061; 81001; 82550; 82962; 83036; 83735; 84443; 84484; 85025; 93005; 93010; 93306; 99285; G8978-GP; G8979-GP; G8987-GO; G8988-GO; J1650; J3475; J3490; J7030; J7120

== ENCOUNTER → 2018-08-19 | Outpatient (CLI) | payer MEDICARE, BC ==
[2018-08-19 14:09] LABS: HEMATOCRIT 44.1 % (36.0-47.0); HEMOGLOBIN 14.8 g/dL (12.0-15.5); MEAN CORPUSCULAR HEMOGLOBIN 28.7 pg (27.0-33.4); MEAN CORPUSCULAR HGB CONC 33.6 g/dL (32.0-36.0); MEAN CORPUSCULAR VOLUME 86 fl (80-97); PLATELET COUNT 221 10^3/uL (150-450); RED BLOOD COUNT 5.15 10^6/uL (3.72-5.28); RED CELL DISTRIBUTION WIDTH 12.8 % (11.5-14.0); WHITE BLOOD COUNT 9.1 10^3/uL (4.0-10.5)
[2018-08-19 14:24] LABS: APPEARANCE,URINE SLIGHTLY-CLOUDY; BILIRUBIN,URINE NEGATIVE (NEGATIVE); COLOR,URINE YELLOW; GLUCOSE, URINE NEGATIVE (NEGATIVE); KETONES,URINE NEGATIVE (NEGATIVE); LEUKOCYTE ESTERASE,URINE LARGE (NEGATIVE); NITRITE,URINE NEGATIVE (NEGATIVE); PROTEIN,URINE NEGATIVE (NEGATIVE); UROBILINOGEN,URINE NEGATIVE mg/dL (<2.0)
[2018-08-19 14:24] LABS: ANION GAP 9 (5-19); BLOOD UREA NITROGEN 46 mg/dL (7-20); CALCIUM 10.6 mg/dL (8.4-10.2); CARBON DIOXIDE 31 mmol/L (22-30); CHLORIDE 101 mmol/L (98-107); GLUCOSE 132 mg/dL (75-110); IRON(TIBC) 125.6 ug/dL (37-170); POTASSIUM 4.7 mmol/L (3.6-5.0); SODIUM 140.8 mmol/L (137-145)
== END ==
LOC: OD 13:09
PROVIDERS: ATTEND Physician Assistant Medical
DX: I12.9 Hypertensive chronic kidney disease with stage 1 through stage 4 chronic kidney disease, or unspecified chronic kidney disease (principal); N18.3 Chronic kidney disease, stage 3 (moderate); E11.22 Type 2 diabetes mellitus with diabetic chronic kidney disease; D64.9 Anemia, unspecified
CPT/HCPCS: 36415; 80048; 81001; 82728; 83540; 83550; 85027

== ENCOUNTER → 2018-10-22 | Outpatient (CLI) | payer MEDICARE, BC ==
--- NOTE | 2018-10-22 10:41 | WOMENS IMAGING REPORT ---
EXAM DESCRIPTION: BONE DENSITY HIP/SPINE COMPLETED DATE/TIME: 10/22/2018 10:28 am REASON FOR STUDY: C50.412 MALIGNANT NEOPLASM OF UPPER OUTER QUADRANT OF LEFT FEMALE BREAST C50.412 MALIG NEOPLASM OF UPPER-OUTER QUADRANT OF LEFT FEMAL M81.0 AGE-RELATED OSTEOPOROSIS W/O CURRENT PATH OLOGICAL FRAC COMPARISON: 07/28/2016 TECHNIQUE: Dual-Energy X-ray Absorptiometry (DEXA) of the AP Spine and Hip. LIMITATIONS: None. FINDINGS: LUMBAR SPINE: The bone mineral density (BMD) measured from L1-L4 in the AP projection correlates with a T-score of 1.8, which is normal as defined by the World Health Organization. BMD change since the previous exam ination dated 07/28/2016 is 8.5%. HIP: The bone mineral density (BMD) measured in the left hip correlates with a T-score of -2.8, which is o steoporosis as defined by the World Health Organization. BMD change since the prior examination date d 07/28/2016 is -1.2%. IMPRESSION: 1. LUMBAR SPINE: NORMAL. 2. HIP: OSTEOPOROSIS. COMMENT: The World Health Organization defines low BMD as follows: T-score: Normal: Greater than -1.0 Osteopenia: Between -1.0 and -2.5 Osteoporosis: Less than -2.5 without fractures Established osteoporosis: Less than -2.5 with fractures In general, you may wish to consider: Diagnosis Treatment Follow-up DEXA Normal BMD Prevention 2-3 years Osteopenia Prevention/Therapy 1-2 years Osteoporosis Therapy Yearly TECHNICAL DOCUMENTATION: JOB ID: [id number]- All Rights Reserved Reading location - IP/workstation name: [email or web address]
--- NOTE | 2018-10-22 15:18 | WOMENS IMAGING REPORT ---
EXAM DESCRIPTION: 3D DX MAMMO BILAT COMPLETED DATE/TIME: 10/22/2018 10:28 am REASON FOR STUDY: C50.412 MALIGNANT NEOPLASM OF UPPER OUTER QUADRANT OF LEFT FEMALE BREAST C50.412 MALIG NEOPLASM OF UPPER-OUTER QUADRANT OF LEFT FEMAL M81.0 AGE-RELATED OSTEOPOROSIS W/O CURRENT PATH OLOGICAL FRAC COMPARISON: 2016, 2017 TECHNIQUE: Standard craniocaudal and mediolateral oblique views of each breast recorded using digita l acquisition and breast tomosynthesis. Additional left breast 90 mediolateral view LIMITATIONS: None. FINDINGS: RIGHT BREAST MASSES: No suspicious masses. CALCIFICATIONS: No new or suspicious calcifications. ARCHITECTURAL DISTORTION: None. DEVELOPING DENSITY: None. ASYMMETRY: None noted. OTHER: No other significant findings. LEFT BREAST MASSES: No suspicious masses. CALCIFICATIONS: No new or suspicious calcifications. ARCHITECTURAL DISTORTION: None. DEVELOPING DENSITY: None. ASYMMETRY: None noted. OTHER: No other significant finding. Read with the assistance of CAD: .[facility] - [employer] Version 9.2 IMPRESSION: No mammographic or tomosynthesis evidence for malignancy bilaterally. BREAST DENSITY: a. The breasts are almost entirely fatty. BIRAD: 2 Benign findings. RECOMMENDATION: RECOMMENDED FOLLOW UP: Please continue right breast screening left breast diagnostic mammography/ tomosynthesis in October 2019 SPECIFIC INTERVENTION/IMAGING/CONSULTATION RECOMMENDED:No additional intervention/ imaging/consultati on needed at this time. COMMUNICATION:Patient notified by letter COMMENT: The patient has been notified of the results by letter per MQSA requirements. Additional no tification policies are in place for contacting patient with suspicious or incomplete findings. Quality ID #[id number]: The [employer] recommends an annual screening mammogram for women aged 40 years or over. This facility utilizes a reminder system to ensure that all patients receive reminder letters, and/or direct phone calls for appointments. This includes reminders for routine scr eening mammograms, diagnostic mammograms, or other Breast Imaging Interventions when appropriate. Th is patient will be placed in the appropriate reminder system. TECHNICAL DOCUMENTATION: FINDING NUMBER: (1) ASSESSMENT: (1) JOB ID: [id number] [employer] All Rights Reserved Reading location - IP/workstation name: [email or web address]
== END ==
LOC: WI 09:55
PROVIDERS: ATTEND Internal Medicine Hematology & Oncology
DX: C50.412 Malignant neoplasm of upper-outer quadrant of left female breast (principal); M81.0 Age-related osteoporosis without current pathological fracture
CPT/HCPCS: 77066; 77080; G0279; 77062

== ENCOUNTER → 2019-02-14 | Outpatient (CLI) | payer MEDICARE, BC ==
[2019-02-14 13:30] LABS: HEMATOCRIT 41.3 % (36.0-47.0); MEAN CORPUSCULAR HGB CONC 33.8 g/dL (32.0-36.0); MEAN CORPUSCULAR VOLUME 86 fl (80-97); PLATELET COUNT 214 10^3/uL (150-450); RED BLOOD COUNT 4.83 10^6/uL (3.72-5.28); WHITE BLOOD COUNT 9.3 10^3/uL (4.0-10.5)
[2019-02-14 13:36] LABS: APPEARANCE,URINE SLIGHTLY-CLOUDY; BILIRUBIN,URINE NEGATIVE (NEGATIVE); COLOR,URINE YELLOW; GLUCOSE, URINE 50 mg/dL (NEGATIVE); KETONES,URINE NEGATIVE (NEGATIVE); LEUKOCYTE ESTERASE,URINE MODERATE (NEGATIVE); NITRITE,URINE NEGATIVE (NEGATIVE); PROTEIN,URINE NEGATIVE (NEGATIVE); UROBILINOGEN,URINE NEGATIVE mg/dL (<2.0)
[2019-02-14 13:52] LABS: ANION GAP 13 (5-19); BLOOD UREA NITROGEN 55 mg/dL (7-20); CARBON DIOXIDE 26 mmol/L (22-30); CHLORIDE 97 mmol/L (98-107); GLUCOSE 256 mg/dL (75-110); PHOSPHORUS 3.9 mg/dL (2.5-4.5); POTASSIUM 4.8 mmol/L (3.6-5.0)
== END ==
LOC: OD 12:55
PROVIDERS: ATTEND Physician Assistant Medical
DX: I12.9 Hypertensive chronic kidney disease with stage 1 through stage 4 chronic kidney disease, or unspecified chronic kidney disease (principal); N18.3 Chronic kidney disease, stage 3 (moderate); E11.22 Type 2 diabetes mellitus with diabetic chronic kidney disease; R60.9 Edema, unspecified; E83.52 Hypercalcemia; N39.0 Urinary tract infection, site not specified
CPT/HCPCS: 36415; 80048; 81001; 83970; 84100; 85027; 87086; 87088; 87186

== ENCOUNTER 2019-05-28 10:16 | Emergency (ER) | payer MEDICARE, BC ==
--- NOTE | 2019-05-28 11:23 | RADIOLOGY REPORT (SQ) ---
EXAM DESCRIPTION: ANKLE RIGHT COMPLETE COMPLETED DATE/TIME: 05/28/2019 11:06 am REASON FOR STUDY: fall; pain with ambulating; soreness COMPARISON: None. NUMBER OF VIEWS: Three views. TECHNIQUE: AP, lateral, and oblique radiographic images acquired of the right ankle. LIMITATIONS: None. FINDINGS: MINERALIZATION: Osteopenia. BONES: Acute displaced fractures of the medial and lateral malleoli with disruption of the ankle mort ise. The talar dome is intact JOINTS: Joint effusion. SOFT TISSUES: Soft tissue swelling. No radiopaque foreign body. OTHER: Enthesophytes at the calcaneal insertion of the plantar fascia. IMPRESSION: Acute displaced fractures of the medial and lateral malleoli. TECHNICAL DOCUMENTATION: JOB ID: [id number] [employer]- All Rights Reserved Reading location - IP/workstation name: [email or web address]
--- NOTE | 2019-05-28 11:47 | ER Document Report ---
ED Extremity Problem, Lower - General Chief Complaint: fell Stated Complaint: FALL/ANKLE PAIN Time Seen by Provider: 05/28/19 11:33 Primary Care Provider: PIYUSH SHARP PA-C [Primary Care Provider] - Follow up as needed Mode of Arrival: Wheelchair Information source: Patient, Relative TRAVEL OUTSIDE OF THE [place] IN LAST 30 DAYS: Yes - HPI Notes: Patient's arrives with complaints of right ankle pain. She was walking today to a doctor's appointment when she lost her balance and fell onto her right side. She denies any other pain or problems other than in the right ankle. The right ankle pain is constant. Is moderate. It is worse with movement and better with rest. Patient is unable to bear weight. The pain does radiate up the right leg. It is a sharp pain. - Related Data Allergies/Adverse Reactions: cephalexin monohydrate [From Keflex] Allergy (Verified 03/24/18 07:41) RASH, ITCHING Past Medical History - General Information source: Patient, Relative - Social History Smoking Status: Never Smoker Frequency of alcohol use: None Drug Abuse: None Family History: Arthritis, DM, Hypertension, Malignancy Patient has suicidal ideation: No Patient has homicidal ideation: No - Past Medical History Cardiac Medical History: Reports: Hx Hypercholesterolemia, Hx Hypertension, Hx Peripheral Vascular Disease Denies: Hx Coronary Artery Disease Comment Only: Hx Heart Attack - PAD FOLLOWED IN [facility] [id number] Pulmonary Medical History: Denies: Hx Asthma, Hx Bronchitis, Hx COPD, Hx Pneumonia, Hx Tuberculosis Neurological Medical History: Denies: Hx Cerebrovascular Accident, Hx Seizures Endocrine Medical History: Reports: Hx Diabetes Mellitus Type 2. Denies: Hx Diabetes Mellitus Type 1, Hx Hyperthyroidism, Hx Hypothyroidism Renal/ Medical History: Denies: Hx Peritoneal Dialysis Malignancy Medical History: Reports: Hx Breast Cancer GI Medical History: Reports: Hx Gastroesophageal Reflux Disease, Hx Hiatal Hernia. 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 Denies: Hx Open Heart Surgery, Hx Pacemaker - Immunizations Hx Diphtheria, Pertussis, Tetanus Vaccination: Yes Hx Pneumococcal Vaccination: 12/17/15 Review of Systems - Review of Systems Constitutional: denies: Chills, Fever Cardiovascular: denies: Chest pain, Palpitations, Heart racing Respiratory: denies: Cough, Short of breath -: Yes All other systems reviewed and negative Physical Exam - Vital signs Vitals: Temp Resp Pulse Ox 97.7 F 15 93 05/28/19 10:18 05/28/19 10:18 05/28/19 10:18 Interpretation: Normal - General General appearance: Appears well, Alert - HEENT Head: Normocephalic, Atraumatic Eyes: Normal Pupils: PERRL - Respiratory Respiratory status: No respiratory distress Chest status: Nontender Breath sounds: Normal Chest palpation: Normal - Cardiovascular Rhythm: Regular Heart sounds: Normal auscultation Murmur: No - Abdominal Inspection: Normal Distension: No distension Bowel sounds: Normal Tenderness: Nontender Organomegaly: No organomegaly - Back Back: Normal, Nontender - Extremities General upper extremity: Normal inspection, Nontender, Normal color, Normal ROM, Normal temperature General lower extremity: Tender - Left lower extremities unremarkable. Right lower extremity has tenderness and swelling diffusely to the right ankle. There is some discoloration and ecchymosis about the ankle and dorsal foot as well. I cannot palpate a dorsalis pedis pulse on the right. She can flex and extend all toes. She has good capillary refill in the right toes. She has no pain or deformities above the ankle.. No: Arian's sign - Neurological Neuro grossly intact: Yes Cognition: Normal Orientation: AAOx4 Gage Coma Scale Eye Opening: Spontaneous Gage Coma Scale Verbal: Oriented Gage Coma Scale Motor: Obeys Commands [place]oma Coma Scale Total: 15 Speech: Normal Motor strength normal: LUE, RUE, LLE, RLE Sensory: Normal - Psychological Associated symptoms: Normal affect, Normal mood - Skin Skin Temperature: Warm Skin Moisture: Dry Skin Color: Normal Course - Re-evaluation Re-evalutation: 05/28/19 11:44 Patient [address] on the way to a doctor's appointment this morning she has no other injuries with into the right ankle. Right ankle x-ray shows obvious bimalleolar fracture. She will be placed in a posterior splint. She will not be able to to lerate crutches but does have access to a wheelchair at her assisted living. She will follow-up with orthopedics. She is neurovascular intact. - Vital Signs Vital signs: Temp Pulse Resp BP Pulse Ox 97.7 F 80 15 142/68 H 93 05/28/19 10:28 05/28/19 10:28 05/28/19 10:28 05/28/19 10:28 05/28/19 10:28 - Diagnostic Test Radiology reviewed: Image reviewed, Reports reviewed Procedures - Immobilization Right Ankle Time completed: 11:40 Pre-Proc Neuro Vasc Exam: Normal Immobilizer type: Short Leg Posterior Performed by: RN Post-Proc Neuro Vasc Exam: Normal Discharge - Discharge Clinical Impression: Bimalleolar fracture of right ankle Qualifiers: Encounter type: initial encounter Fracture type: closed Qualified Code(s): S82.841A - Displaced bimalleolar fracture of right lower leg, initial encounter for closed fracture Condition: Stable Disposition: HOME, SELF-CARE Instructions: Fractured Ankle (Bimalleolar) ([facility]) Additional Instructions: Please try to keep ankle elevated above your heart as much as possible. You may take Tylenol for pain. Please call orthopedics to arrange follow-up as soon as possible. You may remove the splint for bathing. Referrals: ROMMEL ROBERT JR, DO [ACTIVE PROVISIONAL STAFF] - Follow up in 3-5 days
[2019-05-28 12:41] VITALS: BP 148/68
== END 2019-05-28 12:41 | disposition home or self-care (01) ==
LOC: ER 10:16
DX: S82.841A Displaced bimalleolar fracture of right lower leg, initial encounter for closed fracture (principal); W18.39XA Other fall on same level, initial encounter; Y92.531 Health care provider office as the place of occurrence of the external cause; E78.00 Pure hypercholesterolemia, unspecified; I10 Essential (primary) hypertension; E11.9 Type 2 diabetes mellitus without complications; Z90.710 Acquired absence of both cervix and uterus
CPT/HCPCS: 99283